=== PATIENT | female | born 1965 | race Hispanic/Latino ===

== ENCOUNTER 2017-02-06 10:44 | Inpatient (IN) | payer BC ==
[2017-02-06 11:43] LABS: Basophils % (Auto) 0.6 % (0.0-1.8); Eosinophils % (Auto) 0.5 % (0.0-4.3); Hematocrit 45.3 % (30.3-42.9); Mean Corpuscular HGB Conc 35 % (30-34); Mean Corpuscular Hemoglobin 33 pg (28-32); Mean Corpuscular Volume 93 fl (79-97); Platelet Count 281 K/mm3 (140-440); Red Blood Count 4.86 M/mm3 (3.65-5.03); Red Cell Distribution Width 12.9 % (13.2-15.2); White Blood Count 5.2 K/mm3 (4.5-11.0)
--- NOTE | 2017-02-06 11:46 | Emergency Department Report ---
HPI - General Chief Complaint: Dizziness Time Seen by Provider: 02/06/17 11:33 - HPI HPI: Room 6 The patient is a 52-year-old female presenting with a chief complaint of paresthesia and dysarthria. Patient states her symptoms began earlier yesterday with bilateral hand numbness. Patient states the numbness has been constant and last night she developed dysphagia. She states the numbness increased this morning and was associated with slurred speech. Family states this morning the patient developed weakness and was unable to raise both arms up. Patient denies headache nausea or vomiting. Location: [see above] Duration: Constant since yesterday Quality: Numbness, dysarthria Severity: Moderate Modifying factors: [see above] Context: [see above] Mode of transportation: [not driving] ED Past Medical Hx - Past Medical History Previous Medical History?: No - Surgical History Past Surgical History?: No - Family History Family history: no significant - Social History Smoking Status: Current Every Day Smoker (2 packs per day) Substance Use Type: None (denies illicit drug use) ED Review of Systems ROS: Stated complaint: POSSIBLE CVA Other details as noted in HPI Comment: All other systems reviewed and negative Constitutional: denies: chills, fever Eyes: denies: eye pain, eye discharge, vision change ENT: denies: ear pain, throat pain Respiratory: denies: cough, shortness of breath, wheezing Cardiovascular: denies: chest pain, palpitations Endocrine: no symptoms reported Gastrointestinal: denies: abdominal pain, nausea, vomiting, diarrhea Genitourinary: denies: urgency, dysuria, discharge Musculoskeletal: denies: back pain, joint swelling, arthralgia Skin: denies: rash, lesions Neurological: weakness, paresthesias, other (dysarthria, dysphagia). denies: headache Psychiatric: denies: anxiety, depression Hematological/Lymphatic: denies: easy bleeding, easy bruising Physical Exam - Physical Exam Vital Signs: Vital Signs 02/06/17 11:00 Temperature 98.2 F Pulse Rate 84 Respiratory 16 Rate Blood Pressure 148/89 O2 Sat by Pulse 99 Oximetry Physical Exam: GENERAL: The patient is well-developed well-nourished female lying on stretcher not appearing to be in acute distress. [] HEENT: Normocephalic. Atraumatic. Extraocular motions are intact. Patient has moist mucous membranes. NECK: Supple. Trachea midline CHEST/LUNGS: Clear to auscultation. There is no respiratory distress noted. HEART/CARDIOVASCULAR: Regular. There is no tachycardia. There is no gallop rub or murmur. ABDOMEN: Abdomen is soft, nontender. Patient has normal bowel sounds. There is no abdominal distention. SKIN: There is no rash. There is no edema. There is no diaphoresis. NEURO: The patient is awake, alert, and oriented. The patient is cooperative. Cranial nerves II through XII grossly intact, no drift. [employer] Chief [employer] 5+/5 bilaterally. The patient is a slight dysarthria. Slightly decreased sensation left lower extremity otherwise sensation normal throughout MUSCULOSKELETAL: There is no evidence of acute injury. ED Course Vital Signs 02/06/17 11:00 Temperature 98.2 F Pulse Rate 84 Respiratory 16 Rate Blood Pressure 148/89 O2 Sat by Pulse 99 Oximetry ED Medical Decision Making - Lab Data Result diagrams: 02/06/17 11:29 02/06/17 11:29 Laboratory Tests 02/06/17 02/06/17 02/06/17 10:52 11:29 11:29 WBC 5.2 RBC 4.86 Hgb 16.0 H Hct 45.3 H MCV 93 MCH 33 H MCHC 35 H RDW 12.9 L Plt Count 281 Lymph % (Auto) 25.7 [place] % (Auto) 7.9 H Eos % (Auto) 0.5 Baso % (Auto) 0.6 Lymph # 1.3 [place] # 0.4 Eos # 0.0 Baso # 0.0 Seg Neutrophils % 65.3 Seg Neutrophils # 3.4 PT INR APTT Sodium 140 Potassium 3.8 Chloride 100.3 Carbon Dioxide 22 Anion Gap 22 BUN 8 Creatinine 0.8 Estimated GFR > 60 BUN/Creatinine Ratio 10.00 Glucose 91 POC Glucose 90 Calcium 9.0 Troponin T < 0.010 02/06/17 12:00 WBC RBC Hgb Hct MCV MCH MCHC RDW Plt Count Lymph % (Auto) [place] % (Auto) Eos % (Auto) Baso % (Auto) Lymph # [place] # Eos # Baso # Seg Neutrophils % Seg Neutrophils # PT 14.2 INR 1.05 APTT 29.2 Sodium Potassium Chloride Carbon Dioxide Anion Gap BUN Creatinine Estimated GFR BUN/Creatinine Ratio Glucose POC Glucose Calcium Troponin T - EKG Data -: EKG Interpreted by Me EKG shows normal: sinus rhythm Rate: normal - EKG Data When compared to previous EKG there are: previous EKG unavailable Interpretation: other (frequent PVCs) - Radiology Data Radiology results: report reviewed (CT head), image reviewed (CT head) CT head (read by radiologist)-mild frontal cortical atrophy. No acute changes - Differential Diagnosis CVA, anxiety Critical care attestation.: If time is entered above; I have spent that time in minutes in the direct care of this critically ill patient, excluding procedure time. ED Disposition Clinical Impression: CVA (cerebral vascular accident) Disposition: DC-09 OP ADMIT IP TO THIS HOSP Is pt being admited?: Yes Does the pt Need Aspirin: Yes Condition: Fair Referrals: PRIMARY CARE,MD [Primary Care Provider] - 3-5 Days Time of Disposition: 12:25 (hospitalist paged)
[2017-02-06 12:02] LABS: Anion Gap 22 mmol/L; Blood Urea Nitrogen 8 mg/dL (7-17); Carbon Dioxide 22 mmol/L (22-30); Chloride 100.3 mmol/L (98-107); Glucose 91 mg/dL (65-100); Potassium 3.8 mmol/L (3.6-5.0); Sodium 140 mmol/L (137-145)
--- NOTE | 2017-02-06 12:16 | Cat Scan Report ---
CT HEAD WITHOUT CONTRAST: 02/06/17 10:44:00 CLINICAL: Dysarthria and bilateral hand paresthesias. TECHNIQUE: 2.5-mm noncontrast scans. COMPARISON:None FINDINGS: The ventricles are normal size. Mild widening of frontal lobe sulci. No abnormal density. No mass or mass effect. No hemorrhage, edema or extra-axial collection. The sinuses are clear. Normal orbits and soft tissues. The calvarium and skull base are intact. IMPRESSION: Mild frontal cortical atrophy and no acute change.
[2017-02-06 12:21] LABS: INR 1.05 (0.87-1.13)
[2017-02-06 12:22] LABS: Partial Thromboplastin Time 29.2 Sec. (24.2-36.6)
[2017-02-06] MEDS ORDERED: ASPIRIN PO ONE (12:24)
--- NOTE | 2017-02-06 12:34 | History and Physical Report ---
History of Present Illness Chief complaint: I cant talk right and I felt weak in my arms History of present illness: 52 YO Female with Nicotine Dependence presents to ED for evaluation. Pt states that she has experienced dizziness, arm weakness, and difficulty speaking for the past 14 hours with worsening symptoms over the past 6 hours. Pt states that when she awoke this am she was unable to speak, and her left arm felt weak and she could not think. Pt denies fever, chills, CP, Palpitations, NVD, Illicit drug use, OTC medication/herbal supplements, Syncope, Seizure, loss of bowel/ bladder continence, falls, BRBPR, BEST, Trauma, BEST, skin rashes, productive cough , or recent ill contacts. Pt states that she feels anxious. Past History Past Medical History: other (Nicotine Dependence) Past Surgical History: Other (breast surgery) Social history: , smoking. denies: alcohol abuse, prescription drug abuse, IV drug use Family history: other (reviewed). denies: no significant family history Medications and Allergies Allergies Allergy/AdvReac Type Severity Reaction Status Date / Time No Known Allergies Allergy Unverified 02/06/17 11:09 Review of Systems All systems: negative Constitutional: no weight loss Ears, nose, mouth and throat: no ear pain Breasts: no swelling Cardiovascular: no chest pain Respiratory: no cough Gastrointestinal: no abdominal pain Genitourinary Female: no pelvic pain Rectal: no pain Musculoskeletal: no neck stiffness Integumentary: no rash Neurological: transient paralysis, weakness, numbness, no head injury Psychiatric: anxiety Endocrine: no cold intolerance Hematologic/Lymphatic: no easy bruising Allergic/Immunologic: no urticaria Exam - Constitutional Vitals: Temp Pulse Resp BP Pulse Ox 98.2 F 84 16 148/89 99 02/06/17 11:00 02/06/17 11:00 02/06/17 11:00 02/06/17 11:00 02/06/17 11:00 General appearance: Present: mild distress, other (anxious) - EENT Eyes: Present: PERRL ENT: hearing intact, clear oral mucosa - Neck Neck: Present: supple, normal ROM - Respiratory Respiratory effort: normal Respiratory: bilateral: CTA - Cardiovascular Heart Sounds: Present: S1 & S2. Absent: rub, click - Extremities Extremities: pulses symmetrical, No edema Peripheral Pulses: within normal limits - Abdominal General gastrointestinal: Present: soft, non-tender, non-distended, normal bowel sounds Female genitourinary: Present: normal - Integumentary Integumentary: Present: clear, warm, dry - Musculoskeletal Musculoskeletal: gait normal, strength equal bilaterally - Psychiatric Psychiatric: appropriate mood/affect, intact judgment & insight - Neurologic Neurologic: CNII-XII intact, no focal deficits, moves all extremities, gait normal Results - Labs CBC & Chem 7: 02/06/17 11:29 02/06/17 11:29 Labs: Abnormal lab results 02/06/17 Range/Units 11:29 Hgb 16.0 H (10.1-14.3) gm/dl Hct 45.3 H (30.3-42.9) % MCH 33 H (28-32) pg MCHC 35 H (30-34) % RDW 12.9 L (13.2-15.2) % [place] % (Auto) 7.9 H (0.0-7.3) % Assessment and Plan - Patient Problems (1) CVA (cerebral vascular accident) Current Visit: Yes Status: Suspected Qualifiers: CVA mechanism: occlusion Precerebral and cerebral artery: middle cerebral artery Laterality of affected vessel: right Qualified Code(s): I63.511 - Cerebral infarction due to unspecified occlusion or stenosis of right middle cerebral artery Plan to address problem: CT head, MRI/MRA, Carotid Doppler, Echo, Antiplatelet therapy, PT/OT/ Speech therapy, bedside swallow evaluation. (2) Nicotine dependence Current Visit: Yes Status: Acute Qualifiers: Nicotine product type: N Substance use status: S Plan to address problem: nicotine Patch, remove qhs (3) Agitation Current Visit: Yes Status: Acute Plan to address problem: UDS, ativan prn (4) DVT prophylaxis Current Visit: Yes Status: Acute
[2017-02-06] MEDS ORDERED: TYLENOL PO PRN (12:35)
[2017-02-06] MEDS ORDERED: SODIUM CHLORIDE FLUSH SYRINGE 10 ML IV PRN (12:35)
[2017-02-06] MEDS ORDERED: MILK OF MAGNESIA PO PRN (12:35)
[2017-02-06] MEDS ORDERED: ZOFRAN IV PRN (12:35)
[2017-02-06] MEDS ORDERED: PHENERGAN PR PRN (12:35)
[2017-02-06] MEDS ORDERED: DULCOLAX PR PRN (12:35)
[2017-02-06] MEDS ORDERED: REGLAN PO PRN (12:51)
[2017-02-06] MEDS ORDERED: ATIVAN IV ONE (13:14)
[2017-02-06] MEDS ORDERED: HABITROL TD ONE (14:00)
[2017-02-06 14:08] LABS: Urine Drugs of Abuse Note Disclamer
[2017-02-06] MEDS ORDERED: SINEquan PO PRN (21:32)
[2017-02-06] MEDS ORDERED: ZOCOR PO SCH (22:00)
[2017-02-06] MEDS: HABITROL TD SCH (22:33)
[2017-02-06] MEDS: CYMBALTA PO SCH (22:33)
[2017-02-07 04:14] VITALS: BP 127/80
--- NOTE | 2017-02-07 06:32 | Admit Criteria Form ---
Admission Criteria Documentation: TELEMETRY CARE Telemetry Admission Guidelines (Place 'X' for any and all applicable criteria): Admission to telemetry [A] may be indicated for ANY ONE of the following(1)(2)(3 )(4)(5): [ ]I. Cardiac disease, including ANY ONE of the following (9)(10)(11)(12)(13 ): [ ]a) Postacute SD [ ]b) Low-risk patients with ST-segment elevation SD who have undergone successful percutaneous coronary intervention [ ]c) Unstable angina [ ]d) Suspected SD (until it is ruled out) [ ]e) Post cardiac surgery (first 48 to 72 hours unless complications occur) [ ]f) Acute arrhythmias (including significant tachycardia or bradycardia) [B] [ ]g) Firing of an implantable cardioverter defibrillator [C] [ ]h) Suspected pacemaker or implantable cardioverter defibrillator malfunction (10) [ ]i) New administration or adjustment of an antiarrhythmic drug [D ] [ ]j) Child admitted for acute congestive heart failure [ ]j) Long QT syndrome [ ]k) Advanced heart block (eg, second-degree Mobitz type II, third- degree heart block) [ ]l) Acute myocarditis or pericarditis [ ]m) Short-term (ambulatory or inpatient) monitoring after a cardiac procedure as indicated by ANY ONE of the following [E]: [ ]i) Electrophysiologic studies [ ]ii) Percutaneous coronary intervention with stent placement [ ]iii) Pacemaker placement with cardiac conduction defect [ ]iv) Implantable cardiac defibrillator placement [ ]II. Drug overdose or poisoning with substance that causes arrhythmias or QT prolongation (eg, phenothiazines, sympathomimetic agents, cyclic antidepressants, digitalis, antiarrhythmic drugs)(15) [ ]III. Short-term (ambulatory or inpatient) monitoring after therapeutic or diagnostic procedure requiring conscious sedation or anesthesia (eg, endoscopy, elective cardioversion) [X]IV. Acute cerebrovascular even[F](18) [ ]V. Massive blood transfusion (eg, at least 10 units of packed red blood cells in 24 hours) [ ]. Variceal bleeding after endoscopy, sclerotherapy, or IV vasopressin [ ]VII. Uncorrected electrolyte abnormalities associated with an increased risk of dangerous arrhythmia [G]; examples include [ ]a) Hyperkalemia with attributable ECG changes [ ]b) Potassium greater than 6.5 mmol/L (mEq/L) in a patient without history of chronic renal disease [ ]c) Prolonged QT attributed to hypokalemia, hypomagnesemia, or hypocalcemia [ ]VIII.Unexplained syncope or other neurologic event suspected of being due to arrhythmia due to a finding that increases risk; examples include(19)(20)(21): [ ]a) High-risk ECG findings (eg, bifascicular block, bradycardia, abnormal QT interval, ventricular pre- excitation) [ ]b) History of previous syncope due to arrhythmia [ ]c) Abnormal ventricular function (eg, reduced ejection fraction ) [ ]d) Exertional or supine syncope [ ]e) Concerning syncope characteristics (eg, sudden loss of consciousness without prodrome) [ ]f) Family history of sudden [ ]g) Use of arrhythmogenic medication [ ]h) Suspected cardiac ischemia [ ]i) Known channelopathy (eg, long QT syndrome, Brugada syndrome, or catecholaminergic paroxysmal ventricular tachycardia) [ ]j) Known structural heart disease (eg, hypertrophic cardiomyopathy , severe valvular disease) [ ]k) Palpitations preceding syncope The original [employer] content created by [employer] has been revised. The portions of the content which have been revised are identified through the use of italic text or in bold, and [employer] has neither reviewed nor approved the modified material. All other unmodified content is copyright [employer]. Please see references footnoted in the original [employer] edition 2016 Admission Criteria Met: Yes
[2017-02-07] MEDS ORDERED: ECOTRIN PO SCH (10:00)
[2017-02-07] MEDS: CYMBALTA PO SCH (10:13)
[2017-02-07] MEDS: HABITROL TD SCH (10:13)
--- NOTE | 2017-02-07 13:27 | Progress Note ---
Hospitalist Physical - Constitutional Vitals: Temp Pulse Resp BP Pulse Ox 97.9 F 61 18 127/80 94 02/07/17 04:12 02/07/17 04:12 02/07/17 04:12 02/07/17 04:12 02/07/17 04:12 General appearance: Present: mild distress, other (anxious) Results - Labs CBC & Chem 7: 02/06/17 11:29 02/06/17 11:29 Labs: Laboratory Last Values WBC 5.2 K/mm3 (4.5-11.0) 02/06/17 11:29 RBC 4.86 M/mm3 (3.65-5.03) 02/06/17 11:29 Hgb 16.0 gm/dl (10.1-14.3) H 02/06/17 11:29 Hct 45.3 % (30.3-42.9) H 02/06/17 11:29 MCV 93 fl (79-97) 02/06/17 11:29 MCH 33 pg (28-32) H 02/06/17 11:29 MCHC 35 % (30-34) H 02/06/17 11:29 RDW 12.9 % (13.2-15.2) L 02/06/17 11:29 Plt Count 281 K/mm3 (140-440) 02/06/17 11:29 Lymph % (Auto) 25.7 % (13.4-35.0) 02/06/17 11:29 [place] % (Auto) 7.9 % (0.0-7.3) H 02/06/17 11:29 Eos % (Auto) 0.5 % (0.0-4.3) 02/06/17 11:29 Baso % (Auto) 0.6 % (0.0-1.8) 02/06/17 11:29 Lymph # 1.3 K/mm3 (1.2-5.4) 02/06/17 11:29 [place] # 0.4 K/mm3 (0.0-0.8) 02/06/17 11:29 Eos # 0.0 K/mm3 (0.0-0.4) 02/06/17 11:29 Baso # 0.0 K/mm3 (0.0-0.1) 02/06/17 11:29 Seg Neutrophils % 65.3 % (40.0-70.0) 02/06/17 11:29 Seg Neutrophils # 3.4 K/mm3 (1.8-7.7) 02/06/17 11:29 PT 14.2 Sec. (12.2-14.9) 02/06/17 12:00 INR 1.05 (0.87-1.13) 02/06/17 12:00 APTT 29.2 Sec. (24.2-36.6) 02/06/17 12:00 Sodium 140 mmol/L (137-145) 02/06/17 11:29 Potassium 3.8 mmol/L (3.6-5.0) 02/06/17 11:29 Chloride 100.3 mmol/L (98-107) 02/06/17 11:29 Carbon Dioxide 22 mmol/L (22-30) 02/06/17 11:29 Anion Gap 22 mmol/L 02/06/17 11:29 BUN 8 mg/dL (7-17) 02/06/17 11:29 Creatinine 0.8 mg/dL (0.7-1.2) 02/06/17 11:29 Estimated GFR > 60 ml/min 02/06/17 11:29 BUN/Creatinine Ratio 10.00 % 02/06/17 11:29 Glucose 91 mg/dL (65-100) 02/06/17 11:29 POC Glucose 90 (70-105) 02/06/17 10:52 Calcium 9.0 mg/dL (8.4-10.2) 02/06/17 11:29 Troponin T < 0.010 ng/mL (0.00-0.029) 02/06/17 11:29 Triglycerides 245 mg/dL (2-149) H 02/07/17 07:11 Cholesterol 231 mg/dL (50-199) H 02/07/17 07:11 LDL Cholesterol Direct 116 mg/dL (50-130) 02/07/17 07:11 HDL Cholesterol 66 mg/dL (40-59) H 02/07/17 07:11 Cholesterol/HDL Ratio 3.50 % 02/07/17 07:11 Urine Opiates Screen Presumptive negative 02/06/17 14:04 Urine Methadone Screen Presumptive negative 02/06/17 14:04 Ur Barbiturates Screen Presumptive negative 02/06/17 14:04 Ur Phencyclidine Scrn Presumptive negative 02/06/17 14:04 Ur Amphetamines Screen Presumptive negative 02/06/17 14:04 U Benzodiazepines Scrn Presumptive negative 02/06/17 14:04 Urine Cocaine Screen Presumptive negative 02/06/17 14:04 U Marijuana (THC) Screen Presumptive negative 02/06/17 14:04 Drugs of Abuse Note Disclamer 02/06/17 14:04
--- NOTE | 2017-02-07 17:05 | Discharge Summary ---
Providers - Providers Date of Admission: 02/06/17 12:35 Date of discharge: 02/07/17 Attending physician: DILEEP ALMONTE Primary care physician: MICROSTRATEGY ARCHITECT Hospitalization Condition: Fair Disposition: DC-30 STILL A PATIENT Exam - Constitutional Vitals: Temp Pulse Resp BP Pulse Ox 97.9 F 61 18 127/80 94 02/07/17 04:12 02/07/17 04:12 02/07/17 04:12 02/07/17 04:12 02/07/17 04:12 Plan Activity: advance as tolerated Diet: low cholesterol Special Instructions: smoking cessation Additional Instructions: If you have any slurring of speech, sudden weakness or numbness, contact M.D. or go to emergency room. Smoking cessation advised. out patient MRA and MRI brain w/o to be reviewed by Neurologist Follow up with: PRIMARY MD TREVOR [Primary Care Provider] - 3-5 Days SILVANA BATRES MD [Staff Physician] - 7 Days Prescriptions: Aspirin EC [Aspirin Enteric Coated TAB] 325 mg PO QDAY #30 tablet Nicotine [Habitrol] 21 mg TD QDAY #30 patch Simvastatin [Zocor TAB] 20 mg PO QHS #30 tablet
--- NOTE | 2017-02-11 08:59 | Vascular Lab Report ---
CAROTID DUPLEX STUDY: RIGHT PSVEDV CCA PROX:8820 CCA DIST:7121 ICA PROX:8921 ICA MID:6722 ICA DIST:8633 ECA: 9221 VERT: 34 12 LEFT PSVEDV CCA PROX:9421 CCA DIST:9229 ICA PROX:8222 ICA MID:6826 ICA DIST:9134 ECA: [id number] VERT: 68 14 REASON FOR EXAM: Stroke. COMMENTS ON THE RIGHT: Doppler frequency analysis is consistent with 16 to 49 percent diameter reduction of the internal carotid artery. Minimal amount of plaque is seen. The common carotid artery is patent. The external carotid artery is patent. The vertebral artery has antegrade flow. COMMENTS ON THE LEFT: Doppler frequency analysis is consistent with 16 to 49 percent diameter reduction of the internal carotid artery. Minimal amount of plaque is seen. The common carotid artery is patent. The external carotid artery is patent. The vertebral artery has antegrade flow. IMPRESSION: Less than 50% diameter reduction in the internal carotid arteries bilaterally. Consider repeat carotid artery duplex in 12 months.
== END 2017-02-07 17:51 | disposition home or self-care (01) | DRG 66 ==
LOC: ED 10:44 → 4A 12:35
PROVIDERS: ADMIT Internal Medicine; ATTEND Internal Medicine
DX: I63.9 Cerebral infarction, unspecified (principal); F17.200 Nicotine dependence, unspecified, uncomplicated; R45.1 Restlessness and agitation; Z79.899 Other long term (current) drug therapy
CPT/HCPCS: 36415; 70450; 80048; 80061; 80307; 82962; 84484; 85025; 85610; 85730; 93005; 93010; 93306; 93880; 96374; J2060

== ENCOUNTER 2017-02-11 14:08 | Outpatient (CLI) | payer BC ==
--- NOTE | 2017-02-12 09:25 | Magnetic Resonance Report ---
MRI scan of brain: History: TIA, cerebrovascular disease. Technique: Multiplanar, multisequence images were obtained without contrast injection. Findings: No evidence of restricted diffusion. Ventricles are normal in size and midline in location. No evidence of acute ischemia, hemorrhage or mass. No extra-axial fluid collection. Normal brainstem and cerebellum. Normal sinuses and mastoid air cells. Impression: No acute intracranial abnormality.
== END 2017-02-11 14:09 | disposition home or self-care (01) ==
LOC: MRI 14:08
PROVIDERS: ATTEND Specialist
DX: Z00.00 Encounter for general adult medical examination without abnormal findings (principal); E78.00 Pure hypercholesterolemia, unspecified; F17.200 Nicotine dependence, unspecified, uncomplicated; Z86.73 Personal history of transient ischemic attack (TIA), and cerebral infarction without residual deficits
CPT/HCPCS: 70551

== ENCOUNTER 2017-03-30 00:51 | Emergency (ER) | payer BC ==
[2017-03-30 02:03] LABS: Anion Gap 19 mmol/L; BUN/Creatinine Ratio 21.42; Blood Urea Nitrogen 15 mg/dL (7-17); Calcium 9.5 mg/dL (8.4-10.2); Carbon Dioxide 26 mmol/L (22-30); Glucose 91 mg/dL (65-100); Potassium 4.1 mmol/L (3.6-5.0); Sodium 138 mmol/L (137-145)
[2017-03-30 02:05] LABS: Basophils % (Auto) 0.6 % (0.0-1.8); Eosinophils % (Auto) 2.4 % (0.0-4.3); Hematocrit 42.3 % (30.3-42.9); Hemoglobin 15.1 gm/dl (10.1-14.3); Mean Corpuscular HGB Conc 36 % (30-34); Mean Corpuscular Hemoglobin 33 pg (28-32); Mean Corpuscular Volume 92 fl (79-97); Platelet Count 259 K/mm3 (140-440); Red Blood Count 4.58 M/mm3 (3.65-5.03); Red Cell Distribution Width 12.2 % (13.2-15.2); White Blood Count 7.9 K/mm3 (4.5-11.0)
--- NOTE | 2017-03-30 02:12 | XRay Report ---
FINAL REPORT PROCEDURE: XR CHEST 1V AP TECHNIQUE: Chest radiograph anteroposterior view. CPT 15220 HISTORY: Neurologic deficit. COMPARISON: No prior studies are available for comparison. FINDINGS: Heart: Normal. Mediastinum/Vessels: Aortic tortuosity. Lungs/Pleural space: Normal. Bony thorax: No acute osseous abnormality. Life support devices: None. IMPRESSION: No radiographic evidence of acute cardiopulmonary disease.
[2017-03-30 02:17] LABS: INR 0.96 (0.87-1.13); Partial Thromboplastin Time 30.3 Sec. (24.2-36.6)
[2017-03-30 02:55] VITALS: BP 139/68
--- NOTE | 2017-03-30 03:01 | Cat Scan Report ---
FINAL REPORT PROCEDURE: CT HEAD/BRAIN WO CON TECHNIQUE: Computerized tomography of the head was performed without contrast material. HISTORY: THROBBING H/A , NUMBNESS IN CHEEKS COMPARISON: 02/06/2017 FINDINGS: Skull and scalp: Normal. Paranasal sinuses: Normal. Ventricles and subarachnoid spaces: Normal. Cerebrum: No evidence of hemorrhage, acute infarction or mass . Cerebellum and brainstem: No evidence of hemorrhage, acute infarction or mass. Vasculature: Normal. Comments: None. IMPRESSION: There is no evidence of an acute intracranial process
== END 2017-03-30 06:24 | disposition left against medical advice (07) ==
LOC: ED 00:51
DX: Z53.21 Procedure and treatment not carried out due to patient leaving prior to being seen by health care provider (principal)
CPT/HCPCS: 36415; 70450; 71010; 80048; 84484; 85025; 85610; 85670; 85730; 93005; 93010

== ENCOUNTER 2017-08-19 13:39 | Outpatient (CLI) | payer BC | END 2017-08-19 13:40 | disposition home or self-care (01) | LOC: LAB 13:39 | PROVIDERS: ATTEND Specialist | DX: R53.83 Other fatigue (principal); E78.00 Pure hypercholesterolemia, unspecified; F17.200 Nicotine dependence, unspecified, uncomplicated | CPT/HCPCS: 36415; 82306 ==

== ENCOUNTER 2017-09-13 12:02 | Outpatient (CLI) | payer BC ==
--- NOTE | 2017-09-13 12:33 | XRay Report ---
LEFT HIP, 2 views: History: Left hip pain. The bony architecture is intact without evidence of fracture or dislocation. No significant soft tissue abnormality is seen. IMPRESSION: Normal left hip.
--- NOTE | 2017-09-13 12:35 | XRay Report ---
AP AND LATERAL LUMBOSACRAL SPINE: History: Low back pain There is normal height and alignment of the lumbar vertebral bodies. No fracture, subluxation or bone lesion. Moderate to severe degenerative disc narrowing is noted at L5-S1. The remaining levels are within normal limits. The visualized portions of the posterior elements are normal. IMPRESSION: Advanced degenerative disc disease at L5-S1.
== END 2017-09-13 12:03 | disposition home or self-care (01) ==
LOC: XRAY 12:02
PROVIDERS: ATTEND Orthopaedic Surgery
DX: M51.37 Other intervertebral disc degeneration, lumbosacral region (principal); M25.552 Pain in left hip
CPT/HCPCS: 72100

== ENCOUNTER → 2017-11-26 20:12 | Emergency (ER) | payer BC | END | disposition left against medical advice (07) | LOC: ED 20:12 | DX: T14.8XXA Other injury of unspecified body region, initial encounter (principal); Z53.21 Procedure and treatment not carried out due to patient leaving prior to being seen by health care provider; W46.0XXA Contact with hypodermic needle, initial encounter; Y93.89 Activity, other specified; Y99.8 Other external cause status; Y92.89 Other specified places as the place of occurrence of the external cause ==

== ENCOUNTER 2018-01-27 13:11 | Outpatient (CLI) | payer BC ==
--- NOTE | 2018-01-27 14:19 | Mammography Report ---
Bilateral mammogram: No previous studies are available. CAD study utilized. Findings: Bilateral stable breast implants. Fatty breasts bilaterally. Circumscribed nodule measuring 7 mm in diameter at either mid zone CC view. Ill-defined density measuring 1 cm in diameter upper posterior right breast MLO view. No microcalcifications. Impression: Comparison with previous studies is recommended. If previous studies are not available, Recommend spot compression and if necessary sonographic examination of densities right breast. BI-RADS CATEGORY: 0 = Needs additional imaging evaluation ACR BI-RADS MAMMOGRAPHIC CODES: 0 = Needs additional imaging evaluation; 1 = Negative; 2 = Benign; 3 = Probably benign; 4 = Suspicious; 5 = Malignant; 6 = Known biopsy-proven malignancy COMMENT: 1. Dense breast tissue, i.e., adenosis, fibrocystic changes, etc., may obscure an underlying neoplasm. 2. Approximately 10% of cancers are not detected with mammography. 3. A negative mammography report should not delay biopsy if a clinically suspicious mass is present. COMMENT: Patient follow-up letters are generated in [employer].
== END 2018-01-27 13:12 | disposition home or self-care (01) ==
LOC: MAMMO 13:11
PROVIDERS: ATTEND Specialist
DX: Z12.31 Encounter for screening mammogram for malignant neoplasm of breast (principal); E78.00 Pure hypercholesterolemia, unspecified
CPT/HCPCS: 77067

== ENCOUNTER 2018-08-31 07:12 | Day surgery (SDC) | payer BC ==
[~2018-08-31 07:12] MED LIST: WATER FOR IRRIG STERILE IR ONE; WATER FOR IRRIG STERILE ONE
[2018-08-31] MEDS ORDERED: NACL 0.9% 1000 ML 1,000 ML IV SCH (08:00)
[2018-08-31] MEDS ORDERED: VERSED ONE (10:17)
[2018-08-31] MEDS ORDERED: WATER FOR IRRIG STERILE IR ONE (10:22)
--- NOTE | 2018-08-31 10:23 | Anesthesia Day of Surgery ---
Anesthesia Day of Surgery - Day of Surgery Patient Examined: Yes Patient H&P Reviewed: Yes Patient is NPO: Yes Beta Blockers: No Cardiac Clearance: No Pulmonary Clearance: No
--- NOTE | 2018-08-31 10:25 | Anesthesia Consultation ---
Anesthesia Consult and Med Hx Date of service: 08/31/18 - Airway Anesthetic Teeth Evaluation: Good ROM Head & Neck: Adequate Mental/Hyoid Distance: Adequate Mallampati Class: Class III Intubation Access Assessment: Good - Pulmonary Exam CTA: Yes - Cardiac Exam Cardiac Exam: RRR - Pre-Operative Health Status ASA Pre-Surgery Classification: ASA2 Proposed Anesthetic Plan: MAC - Pulmonary Hx Smoking: Yes - Cardiovascular System Hx Hypertension: Yes - Gastrointestinal Hx Ulcer: No Hx Gastroesophageal Reflux Disease: No - Endocrine Hx Renal Disease: No Hx End Stage Renal Disease: No Hx Cirrhosis: No Hx Liver Disease: No Hx Insulin Dependent Diabetes: No Hx Non-Insulin Dependent Diabetes: No Hx Thyroid Disease: No Hx Hypothyroidism: No Hx Hyperthyroidism: No - Hematic Hx Anemia: No Hx Sickle Cell Disease: No - Other Systems Hx Alcohol Use: No Hx Substance Use: No Hx Cancer: No Hx Obesity: Yes
--- NOTE | 2018-08-31 11:04 | Short Stay Summary ---
Short Stay Documentation Date of service: 08/31/18 Narrative H&P: Pt is a 53 yo wf who presents for colonoscopy. Pt with personal history of colon polyps over 5 years ago; she has had constipation with scant hematochezia; this improved after stopping cymbalta. no new gi complaints otherwise at this time. - History Past Medical History: other (see chart note) Past Surgical History: Other (see chart note) Social history: no significant social history - Allergies and Medications Current Medications: Allergies No Known Allergies Allergy (Verified 08/29/18 11:26) Home Medications Medication Instructions Recorded Confirmed Last Taken Type Lisinopril [Zestril TAB] 10 mg PO QDAY 03/30/17 08/31/18 08/30/18 History Cymbalta 60 mg PO DAILY 08/29/18 08/29/18 Unknown History Doxepin 100 mg PO DAILY 08/29/18 08/31/18 08/30/18 History Simvastatin 1 tab PO DAILY 08/29/18 08/31/18 08/30/18 History Active Medications Sodium Chloride (Nacl 0.9% 1000 Ml) 1,000 mls @ 50 mls/hr IV DIRECT JOSH Last Admin: 08/31/18 09:03 Dose: 50 mls/hr Documented by: - Physical exam General appearance: no acute distress Lungs: Clear to auscultation Heart: Regular rate, Normal S1, Normal S2 Gastrointestinal: normal - Brief post op/procedure progress note Date of procedure: 08/31/18 Pre-op diagnosis: personal history of colon polyps Post-op diagnosis: other (colon polyp x 2, diverticulosis, internal hemorrhoids) Procedure: Colonoscopy with snare polypectomy Anesthesia: MAC Findings: 1. Colon polyp x 2 removed with cold snare 2. Diverticulosis 3. Internal hemorrhoids Surgeon: DANIEL BECKMAN Estimated blood loss: minimal Pathology: list (transverse colon polyps) Specimen disposition: to lab Condition: stable Short Stay Discharge Plan Follow up with: DRU HAMMOND MD [Primary Care Provider] - 7 Days
--- NOTE | 2018-08-31 11:11 | Operative Report ---
Operative Report Operative Report: Colonoscopy Procedure Note with Snare polypectomy Date of procedure: 08/31/2018 Endoscopist: Cr Zapien Pre-op diagnosis/indication: personal history of colon polyps, hematochezia, constipation Post-op diagnosis: colon polyp x 2 removed; diverticulosis, internal hemorrhoids MEDICATIONS: MAC COMPLICATIONS: No immediate complications ESTIMATED BLOOD LOSS: none DESCRIPTION OF PROCEDURE: After consent was obtained, the patient was placed in the left lateral decubitis position. The fujinon colonoscope was inserted into the rectum under direct vision, and advanced to the cecum difficulty. The quality of prep was good. The patient tolerated the procedure well. The patient's vital signs were monitored continuously throughout the procedure. FINDINGS: There were two sessile polyps, 4-5 mm, in the transverse colon. The polyps were removed with cold snare polypectomy and retrieved. There were a few medium sized diverticula in the left side of the colon. Internal hemorrhoids were visualized on retroflexion view. IMPRESSION: 1. Colon polyps x 2 removed with cold snare as above 2. Diverticulosis 3. Internal hemorrhoids RECOMMENDATIONS: -high fiber diet daily -follow-up pathology -repeat colonoscopy for surveillance in 3-5 years based on pathology results
[2018-08-31] MEDS ORDERED: DIPRIVAN 10 MG/ML IV ONE ×2 (11:15)
[2018-08-31 11:54] VITALS: BP 117/62
== END 2018-08-31 07:13 | disposition home or self-care (01) ==
LOC: GIO 07:12
PROVIDERS: ATTEND Internal Medicine Gastroenterology
DX: K63.5 Polyp of colon (principal); K57.30 Diverticulosis of large intestine without perforation or abscess without bleeding; K64.8 Other hemorrhoids; F17.210 Nicotine dependence, cigarettes, uncomplicated; I63.9 Cerebral infarction, unspecified; E78.00 Pure hypercholesterolemia, unspecified; F32.9 Major depressive disorder, single episode, unspecified; I10 Essential (primary) hypertension; E66.9 Obesity, unspecified; Z68.26 Body mass index [BMI] 26.0-26.9, adult; Z86.010 Personal history of colon polyps; Z98.51 Tubal ligation status; Z79.899 Other long term (current) drug therapy; Z98.891 History of uterine scar from previous surgery; Z98.890 Other specified postprocedural states
CPT/HCPCS: 45385; 81025; 88305; J2250; J2704; J7030

== ENCOUNTER 2018-10-17 17:37 | Emergency (ER) | payer BC ==
--- NOTE | 2018-10-17 17:47 | Emergency Department Report ---
Chief Complaint: Fall Stated Complaint: FALL/PAIN ON (L) SIDE Time Seen by Provider: 10/17/18 17:46 - HPI History of Present Illness: SP FALL TUESDAY RX CHOLESTEROL MEDS LISINOPRIL CO L LOWER RIB PAIN SIDE- ANTERIOR MSE COMPLETED MSE screening note: Focused history and physical exam performed. Due to findings the following was ordered: ED Disposition for MSE Condition: Stable
--- NOTE | 2018-10-17 18:42 | Emergency Department Report ---
ED General Adult HPI - General Chief complaint: Fall Stated complaint: FALL/PAIN ON (L) SIDE Time Seen by Provider: 10/17/18 17:46 Source: patient Mode of arrival: Ambulatory Limitations: No Limitations - History of Present Illness Initial comments: To 3-year-old male his emergency department complaining of left rib pain after a fall sustained 2 days ago. Pain is been increasingly worsening since the fall and is worse with deep breaths, palpation and range of motion. She reports no hemoptysis, no hematemesis or hematochezia. No fever, chills, sweats, palpitations, nausea, vomiting. Radiation: non-radiation Quality: aching, dull Consistency: constant Improves with: none Worsens with: none Associated Symptoms: denies: confusion, chest pain, diaphoresis, fever/chills, headaches, loss of appetite, malaise, syncope, weakness - Related Data Home Medications Medication Instructions Recorded Confirmed Last Taken Lisinopril [Zestril TAB] 10 mg PO QDAY 03/30/17 08/31/18 08/30/18 Cymbalta 60 mg PO DAILY 08/29/18 08/29/18 Unknown Doxepin 100 mg PO DAILY 08/29/18 08/31/18 08/30/18 Simvastatin 1 tab PO DAILY 08/29/18 08/31/18 08/30/18 Allergies Allergy/AdvReac Type Severity Reaction Status Date / Time No Known Allergies Allergy Verified 10/17/18 17:41 ED Review of Systems ROS: Stated complaint: FALL/PAIN ON (L) SIDE Other details as noted in HPI Constitutional: denies: chills, fever Eyes: denies: eye pain, eye discharge, vision change ENT: denies: ear pain, throat pain Respiratory: denies: cough, shortness of breath, wheezing Cardiovascular: denies: chest pain, palpitations Endocrine: no symptoms reported Gastrointestinal: denies: abdominal pain, nausea, diarrhea Genitourinary: denies: urgency, dysuria, discharge Musculoskeletal: denies: back pain, joint swelling, arthralgia Skin: denies: rash, lesions Neurological: denies: headache, weakness, paresthesias Psychiatric: denies: anxiety, depression Hematological/Lymphatic: denies: easy bleeding, easy bruising ED Past Medical Hx - Past Medical History Hx Hypertension: Yes Hx Liver Disease: No Hx Renal Disease: No Hx Sickle Cell Disease: No Additional medical history: Prior TIA type Symptoms Admitted 02/07, Slurred Speech. Recent HTN since 02/07/17 - Surgical History Additional Surgical History: Tubal - Social History Smoking Status: Current Every Day Smoker Substance Use Type: None - Medications Home Medications: Home Medications Medication Instructions Recorded Confirmed Last Taken Type Lisinopril [Zestril TAB] 10 mg PO QDAY 03/30/17 08/31/18 08/30/18 History Cymbalta 60 mg PO DAILY 08/29/18 08/29/18 Unknown History Doxepin 100 mg PO DAILY 08/29/18 08/31/18 08/30/18 History Simvastatin 1 tab PO DAILY 08/29/18 08/31/18 08/30/18 History ED Physical Exam - General Limitations: No Limitations General appearance: alert, in no apparent distress - Head Head exam: Present: atraumatic, normocephalic - Eye Eye exam: Present: normal appearance, PERRL Pupils: Present: normal accommodation - ENT ENT exam: Present: normal exam, normal orophraynx, mucous membranes moist, TM's normal bilaterally - Neck Neck exam: Present: normal inspection, full ROM - Respiratory Respiratory exam: Present: normal lung sounds bilaterally. Absent: respiratory distress, rales, rhonchi, stridor, chest wall tenderness, accessory muscle use, decreased breath sounds - Cardiovascular Cardiovascular Exam: Present: regular rate, normal rhythm. Absent: systolic murmur, diastolic murmur, rubs, gallop - GI/Abdominal GI/Abdominal exam: Present: soft, normal bowel sounds - Extremities Exam Extremities exam: Present: normal inspection, full ROM, normal capillary refill - Back Exam Back exam: Present: normal inspection, full ROM. Absent: CVA tenderness (R), CVA tenderness (L), paraspinal tenderness, vertebral tenderness - Neurological Exam Neurological exam: Present: alert, oriented X3, CN II-XII intact, normal gait - Psychiatric Psychiatric exam: Present: normal affect, normal mood. Absent: flat affect, manic - Skin Skin exam: Present: warm, dry, intact, normal color. Absent: rash, cyanosis, diaphoretic, erythema ED Course Vital Signs 10/17/18 17:45 Temperature 98.4 F Pulse Rate 72 Respiratory 16 Rate Blood Pressure 114/71 O2 Sat by Pulse 97 Oximetry ED Medical Decision Making - Radiology Data Radiology results: report reviewed (nop fx) Critical care attestation.: If time is entered above; I have spent that time in minutes in the direct care of this critically ill patient, excluding procedure time. ED Disposition Clinical Impression: Contusion of rib on left side Disposition: DC-01 TO HOME OR SELFCARE Is pt being admited?: No Does the pt Need Aspirin: No Condition: Stable Instructions: Contusion in Adults (ED) Referrals: SURESH LUCERO MD [Primary Care Provider] - 3-5 Days
--- NOTE | 2018-10-17 19:56 | XRay Report ---
PROCEDURE: XR RIBS UNI W PA CHEST 3+V LT TECHNIQUE: 3 views left RIBS with frontal view of the chest HISTORY: PAIN SP FALL COMPARISONS: FINDINGS: No displaced rib fractures are identified. Chest demonstrates no evidence for an infiltrate. No pleur al effusion or pneumothorax identified. Cardiac and mediastinal contours are unremarkable. IMPRESSION: Negative rib series. This document is electronically signed by Eliu Husain MD., October 17 2018 07:54:48 PM ET
[2018-10-17 21:26] VITALS: BP 114/71
== END 2018-10-17 20:34 | disposition home or self-care (01) ==
LOC: ED 17:37
DX: S20.212A Contusion of left front wall of thorax, initial encounter (principal); I10 Essential (primary) hypertension; F17.200 Nicotine dependence, unspecified, uncomplicated; W18.30XA Fall on same level, unspecified, initial encounter; Y93.89 Activity, other specified; Y92.89 Other specified places as the place of occurrence of the external cause; Y99.8 Other external cause status
CPT/HCPCS: 99283

== ENCOUNTER 2019-03-16 13:34 | Outpatient (CLI) | payer BC ==
--- NOTE | 2019-03-16 16:50 | Magnetic Resonance Report ---
MRI LEFT KNEE WITHOUT CONTRAST INDICATION / CLINICAL INFORMATION: M17.12 LEFT KNEE UNILATERAL PRIMARY OSTEOARTHRITIS. COMPARISON: None available. TECHNIQUE: Multiplanar, multisequence MR images were obtained. FINDINGS: ACL: No significant abnormality. PCL: No significant abnormality. DISTAL QUADRICEPS TENDON: No significant abnormality. PATELLAR TENDON: No significant abnormality. MEDIAL MENISCUS: Radial tear of the posterior junctional zone extending into the posterior horn. Smal l inferior flap in the medial gutter as seen on coronal PD image 11. LATERAL MENISCUS: No significant abnormality. POSTEROLATERAL CORNER: No significant abnormality. MCL: No significant abnormality. LCL: No significant abnormality. DISTAL IT BAND: No significant abnormality. PATELLOFEMORAL ALIGNMENT: No significant abnormality. ARTICULAR CARTILAGE: Mild chondrosis of the lateral facet of the patella and in the medial compartmen t. JOINT SPACE: Moderate joint effusion with mild synovitis. Tiny popliteal cyst. No intra-articular bod ies. BONES: Mild subchondral edema in the medial tibial plateau subjacent to the meniscal tear. No fractur e. No osseous lesion. SUBCUTANEOUS SOFT TISSUES: Mild anteromedial soft tissue swelling. ADDITIONAL FINDINGS: None. IMPRESSION: 1. Radial tear of the posterior junctional zone of the medial meniscus with small inferior meniscal f lap. 2. Mild chondrosis of the patella and medial compartment with mild subchondral edema in the medial ti bial plateau. 3. Moderate joint effusion. Signer Name: Clovis Ohara MD Signed: 03/16/2019 4:45 PM Workstation Name: [id number]
== END 2019-03-16 13:35 | disposition home or self-care (01) ==
LOC: MRI 13:34
PROVIDERS: ATTEND Orthopaedic Surgery
DX: M25.462 Effusion, left knee (principal); M17.12 Unilateral primary osteoarthritis, left knee; M65.862 Other synovitis and tenosynovitis, left lower leg; E78.00 Pure hypercholesterolemia, unspecified; I10 Essential (primary) hypertension; E66.9 Obesity, unspecified
CPT/HCPCS: 73721

== ENCOUNTER 2019-03-20 13:59 | Emergency (ER) | payer BC ==
[2019-03-20 14:21] VITALS: BP 159/70
[2019-03-20] MEDS ORDERED: PEPCID PO ONE (14:24)
[2019-03-20] MEDS ORDERED: DELTASONE PO ONE (14:24)
--- NOTE | 2019-03-20 14:36 | Emergency Department Report ---
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 It also seems to have popped up on her chest as well. It is slightly itchy but she denies any discomfort. There is no bleeding, weeping, drainage. The patient just arrived from home for work and this rash developed in the last 1-2 hours. She denies any previous history of this. She denies any history of any allergies to medication, food, or known environmental allergens. She denies any new soaps, detergents, food, clothing or any other possible inciting factor. She has a past medical history of previous TIA, hypertension. ED Past Medical Hx - Past Medical History Hx Hypertension: Yes Hx Liver Disease: No Hx Renal Disease: No Hx Sickle Cell Disease: No Additional medical history: Prior TIA type Symptoms Admitted 02/07, Slurred Speech. Recent HTN since 02/07/17 - Surgical History Additional Surgical History: Tubal - Social History Smoking Status: Current Every Day Smoker Substance Use Type: None - Medications Home Medications: Home Medications Medication Instructions Recorded Confirmed Last Taken Type Lisinopril [Zestril TAB] 10 mg PO QDAY 03/30/17 08/31/18 08/30/18 History Cymbalta 60 mg PO DAILY 08/29/18 08/29/18 Unknown History Doxepin 100 mg PO DAILY 08/29/18 08/31/18 08/30/18 History Simvastatin 1 tab PO DAILY 08/29/18 08/31/18 08/30/18 History Cyclobenzaprine [Flexeril] 10 mg PO QHS PRN #20 tablet 02/28/19 Unknown Rx Ibuprofen [Motrin] 800 mg PO Q8HR #30 tablet 02/28/19 Unknown Rx Famotidine [Pepcid] 20 mg PO BID #8 tablet 03/20/19 Unknown Rx predniSONE [Deltasone] 20 mg PO BID #8 tab 03/20/19 Unknown Rx ED Review of Systems ROS: Stated complaint: RASH BREAKOUT ON ARMS Other details as noted in HPI Comment: All other systems reviewed and negative Constitutional: denies: chills, fever Musculoskeletal: denies: joint swelling, myalgia Skin: rash, change in color, pruritus Neurological: denies: numbness, paresthesias Physical Exam - Physical Exam Vital Signs: Vital Signs 03/20/19 14:21 Temperature 97.9 F Pulse Rate 87 Respiratory 18 Rate Blood Pressure 159/70 [Right] O2 Sat by Pulse 96 Oximetry Physical Exam: GENERAL: The patient is well-developed well-nourished. HENT: Normocephalic. Atraumatic. Patient has moist mucous membranes. EYES: Extraocular motions are intact. NECK: Supple. Trachea is midline. CHEST/LUNGS: Clear to auscultation. There is no respiratory distress noted. HEART/CARDIOVASCULAR: Regular. There is no tachycardia. There is no murmur. ABDOMEN: There is no abdominal distention. SKIN: Patient has a erythematous blanchable rash to the bilateral upper extremities, mostly to the upper arms. The rash the arms has blotchy areas but otherwise is confluent to the lateral portions. There are a few small individual lesions to the chest. No bleeding, weeping or drainage. NEURO: The patient is awake, alert, and oriented. The patient is cooperative. Normal speech. MUSCULOSKELETAL: There is no tenderness or deformity. There is no limitation range of motion. There is no evidence of acute injury. ED Course Vital Signs 03/20/19 14:21 Temperature 97.9 F Pulse Rate 87 Respiratory 18 Rate Blood Pressure 159/70 [Right] O2 Sat by Pulse 96 Oximetry ED Medical Decision Making - Medical Decision Making Patient presents with an acute itching rash to the bilateral upper arms and a few lesions to the chest that showed up within the past hour prior to presentation. They do not appear consistent with urticaria but they are itchy and may still be consistent with an allergic reaction. However the patient does not have any known new soaps, detergents, clothing, food or anything that would be a obvious allergen. She has not been spending any time among any plants where she could've gotten a plant dermatitis. She had taken some Benadryl prior to arrival to the emergency department. She was given some steroids and Pepcid. She was reevaluated an hour or so later and the rash has started to improve/decreased. She'll be treated with steroids, Pepcid and Benadryl and was given a referral for dermatology. She will return to the emergency department as a patient with any worsening of her symptoms or any acute distress. - Differential Diagnosis allergic reaction, contact dermatitis, plant dermatitis, cellulitis Critical Care Time: No Critical care attestation.: If time is entered above; I have spent that time in minutes in the direct care of this critically ill patient, excluding procedure time. ED Disposition Clinical Impression: Dermatitis, Allergic reaction Disposition: TO HOME OR SELFCARE Is pt being admited?: No Condition: Stable Instructions: Acute Rash (ED) Additional Instructions: Please follow-up with your primary care physician in the next few days. I'm giving you a referral for a local bridge painter, Dr. wilson, to follow up regarding your rash or allergic reaction. Return to the emergency Department with any worsening of your symptoms or any acute distress. Prescriptions: predniSONE [Deltasone] 20 mg PO BID #8 tab Famotidine [Pepcid] 20 mg PO BID #8 tablet Referrals: PRIMARY MD TREVOR [Primary Care Provider] - 2-3 Days JORGE WILSON MD [Staff Physician] - 2-3 Days Time of Disposition: 17:11
== END 2019-03-20 17:16 | disposition home or self-care (01) ==
LOC: ED 13:59
DX: T78.40XA Allergy, unspecified, initial encounter (principal); L30.9 Dermatitis, unspecified; I10 Essential (primary) hypertension; F17.200 Nicotine dependence, unspecified, uncomplicated; Z98.51 Tubal ligation status; Z98.890 Other specified postprocedural states; Z79.899 Other long term (current) drug therapy; X58.XXXA Exposure to other specified factors, initial encounter
CPT/HCPCS: 99282; J7512

== ENCOUNTER 2019-04-05 06:07 | Day surgery (SDC) | payer BC ==
[~2019-04-05 06:07] MED LIST changes: +CELECOXIB 200 MG CAP PO NR; +GABAPENTIN 300 MG CAP PO NR; +LACTATED RINGERS 1,000 ML IV SCH; +MIDAZOLAM 2 MG/2 ML INJ IV NR; -WATER FOR IRRIG STERILE IR ONE; -WATER FOR IRRIG STERILE ONE; +ceFAZolin/STERILE WATER 2 GM/20 ML SYRINGE IV NR
[2019-04-05] MEDS ORDERED: HYDROmorphone 1 MG/1 ML INJ IV PRN (08:05)
--- NOTE | 2019-04-05 08:05 | Anesthesia Day of Surgery ---
Anesthesia Day of Surgery - Day of Surgery Patient Examined: Yes Patient H&P Reviewed: Yes Patient is NPO: Yes
--- NOTE | 2019-04-05 08:05 | Anesthesia Consultation ---
Anesthesia Consult and Med Hx Date of service: 04/05/19 - Airway Anesthetic Teeth Evaluation: Good ROM Head & Neck: Adequate Mental/Hyoid Distance: Adequate Mallampati Class: Class II Intubation Access Assessment: Probably Good - Pulmonary Exam CTA: Yes - Cardiac Exam Cardiac Exam: RRR - Pre-Operative Health Status ASA Pre-Surgery Classification: ASA2 Proposed Anesthetic Plan: General - Pulmonary Hx Smoking: Yes Hx Respiratory Symptoms: No Hx Sleep Apnea: No (JOSELUIS PRE SCREEN HIGH RISK) - Cardiovascular System Hx Hypertension: Yes Hx Heart Attack/AMI: No - Central Nervous System CVA: Yes (TIA 2016) - Gastrointestinal Hx Gastroesophageal Reflux Disease: No - Endocrine Hx Renal Disease: No Hx Liver Disease: No Hx Insulin Dependent Diabetes: No Hx Non-Insulin Dependent Diabetes: No Hx Thyroid Disease: No - Additional Comments Anesthesia Medical History Comments: No hx anesthetic complications.
[2019-04-05] MEDS ORDERED: methylPREDNISolone ACETATE 40 MG/1 ML INJ ONE (08:21)
[2019-04-05] MEDS ORDERED: BUPIVACAINE/PF (0.5%) 5 MG/1 ML 30 ML VIAL INFILTRATI ONE (08:21)
[2019-04-05] MEDS ORDERED: BUPIVACAINE-EPINEPHRINE/PF 0.5%-1:200,000 (30 ML) VIAL INFILTRATI ONE ×2 (08:22→09:56)
[2019-04-05] MEDS ORDERED: HYDROmorphone 1 MG/1 ML INJ ONE (08:23)
[2019-04-05] MEDS ORDERED: LIDOCAINE MPF (2%) 20 MG/1 ML VIAL 5 ML ONE (08:24)
[2019-04-05] MEDS ORDERED: PROPOFOL 200 MG/20 ML VIAL IV ONE (08:24)
[2019-04-05] MEDS ORDERED: SODIUM CHLORIDE 0.9% IRRIG SOLN 3000 ML IR ONE (09:22)
[2019-04-05] MEDS ORDERED: methylPREDNISolone ACETATE 40 MG/1 ML INJ INTRA-ARTI ONE (09:56)
[2019-04-05] MEDS ORDERED: KETOROLAC 30 MG/1 ML INJ ONE (10:01)
[2019-04-05] MEDS ORDERED: ONDANSETRON 4 MG/2 ML INJ ONE (10:01)
--- NOTE | 2019-04-05 10:22 | Procedure Note ---
Date of procedure: 04/05/19 Pre-op diagnosis: medial meniscus tear left knee Post-op diagnosis: same Procedure: Arthroscopy left knee with partial medial meniscectomy and abrasion chondroplasty Procedure The patient was brought to the OR placed in the OR table in supine position following an induction with Mac anesthesia the patient's left lower extremity was prepped and draped in the usual sterile manner.A timeout procedure was done to identify the patient and the correct operative site. The leg was then exsanguinated followed by inflation of the pneumatic tourniquet to 300 mmHg. Routine arthroscopic portals were made at the infrapatellar region following introduction of the arthroscope and insufflation of the knee joint with saline solution examination of the knee revealed the findings patient was noted to have a radial flap tear with extrusion of the tear in the posterior horn medial meniscus along with 3 chondromalacia involving both the femoral and tibial articular surfaces. The intercondylar notch was explored the anterior cruciate ligament appeared to be intact the scope was then placed into the lateral compartment and the lateral meniscus appeared to be intact without any evidence of tears there was grade 2 chondromalacia in the lateral compartment otherwise unremarkable next attention was turned back to the medial compartment using combination of tissue graspers meniscal biters and radiofrequency the meniscal tear was debrided back to healthy-appearing cartilage in addition the arthroscopic shaver was used to debride the degenerative cartilage from both the femoral and tibial surfaces care was taken not to be too aggressive however. next the wound was copiously irrigated and was closed following removal of the arthroscope and inflow cannula.. The stab wounds were repaired unit nylon and mixture of Depo-Medrol and Marcaine was injected this was followed by application of postoperative dressings. The patient tolerated the procedure and there were no complications Anesthesia: MAC Surgeon: MARISSA STILL Top Lift Compresser: RAFAEL HAMPTON Estimated blood loss: minimal Pathology: none Condition: stable Disposition: PACU
[2019-04-05 11:30] VITALS: BP 136/62
--- NOTE | 2019-04-05 12:14 | Post Anesthesia Evaluation ---
- Post Anesthesia Evaluation Patient Participated: Yes Airway Patent: Yes Stable Respiratory Function: Yes Nausea/Vomiting: No Temp > 96.8F: Yes Pain Manageable: Yes Adequeate Hydration: Yes Anesthesia Complications: No
== END 2019-04-05 11:25 | disposition home or self-care (01) ==
LOC: OR 06:07
PROVIDERS: ATTEND Orthopaedic Surgery
DX: S83.242A Other tear of medial meniscus, current injury, left knee, initial encounter (principal); I10 Essential (primary) hypertension; E78.00 Pure hypercholesterolemia, unspecified; F41.9 Anxiety disorder, unspecified; F32.9 Major depressive disorder, single episode, unspecified; Z98.51 Tubal ligation status; Z87.891 Personal history of nicotine dependence; Z79.899 Other long term (current) drug therapy; Z72.89 Other problems related to lifestyle; Z98.890 Other specified postprocedural states; X58.XXXA Exposure to other specified factors, initial encounter; Y93.89 Activity, other specified; Y92.89 Other specified places as the place of occurrence of the external cause; Y99.8 Other external cause status
CPT/HCPCS: 29881; A4217; J0690; J1030; J1170; J1885; J2250; J2405; J2704; J7120

== ENCOUNTER 2019-07-30 22:20 | Emergency (ER) | payer BC ==
--- NOTE | 2019-07-30 22:28 | Emergency Department Report ---
Blank Doc - Documentation Documentation: 54-year-old female that presents with chest pain and SOB. This initial assessment/diagnostic orders/clinical plan/treatment(s) is/are subject to change based on patient's health status, clinical progression and re- assessment by fellow clinical providers in the ED. Further treatment and workup at subsequent clinical providers discretion. Patient/guardians urged not to elope from the ED as their condition may be serious if not clinically assessed and managed. Initial orders include: 1- Patient sent to [facility] for further evaluation and treatment 2- labs 3- EKG 4- CXR
--- NOTE | 2019-07-30 23:06 | XRay Report ---
CHEST 2 VIEWS INDICATION / CLINICAL INFORMATION: Chest Pain. COMPARISON: 10/17/2018 FINDINGS: SUPPORT DEVICES: None. HEART / MEDIASTINUM: No significant abnormality. LUNGS / PLEURA: No significant pulmonary or pleural abnormality. .No pneumothorax. ADDITIONAL FINDINGS: No significant additional findings. IMPRESSION: 1. No acute findings. Signer Name: Basil Aragon MD Signed: 07/30/2019 11:01 PM Workstation Name: [id number]
[2019-07-30 23:30] LABS: Basophils # (Auto) 0.1 K/mm3 (0.0-0.1); Eosinophils # (Auto) 0.1 K/mm3 (0.0-0.4); Eosinophils % (Auto) 0.7 % (0.0-4.3); Hematocrit 42.1 % (30.3-42.9); Hemoglobin 14.7 gm/dl (10.1-14.3); Lymphocytes # (Auto) 2.6 K/mm3 (1.2-5.4); Lymphocytes % (Auto) 30.3 % (13.4-35.0); Mean Corpuscular HGB Conc 35 % (30-34); Mean Corpuscular Volume 91 fl (79-97); Monocytes # (Auto) 0.6 K/mm3 (0.0-0.8); Monocytes % (Auto) 7.4 % (0.0-7.3); Platelet Count 283 K/mm3 (140-440); Red Blood Count 4.62 M/mm3 (3.65-5.03); Red Cell Distribution Width 12.7 % (13.2-15.2)
[2019-07-30 23:55] LABS: Alanine Aminotransferase 21 units/L (7-56); Albumin 4.8 g/dL (3.9-5); BUN/Creatinine Ratio 26; Blood Urea Nitrogen 18 mg/dL (7-17); Calcium 9.7 mg/dL (8.4-10.2); Hemolysis Index 4
[2019-07-31 00:02] LABS: INR 0.96 (0.87-1.13)
[2019-07-31 00:04] LABS: Partial Thromboplastin Time 30.7 Sec. (24.2-36.6)
[2019-07-31 01:45] VITALS: BP 142/70
--- NOTE | 2019-07-31 01:45 | Emergency Department Report ---
ED Chest Pain HPI - General Chief Complaint: Chest Pain Stated Complaint: CHEST PAIN Time Seen by Provider: 07/30/19 22:27 Source: patient Mode of arrival: Ambulatory Limitations: No Limitations - History of Present Illness Initial Comments: is a 54-year-old female with past medical history of hypertension who had her lisinopril dose increased from 10 mg to 20 mg earlier today. Patient states for the past several days she "just felt funny". Patient works here in our emergency department. Patient states she took her blood pressure this evening and saw that her systolic was approximately 160. Patient states after this she became clammy and sweaty with facial flushing. Patient's felt some tightness in the chest. Patient instructed emergency department for evaluation of chest discomfort. Patient has a stress test scheduled for 2 days from now. Quality: heaviness Improves With: nothing Worsens With: nothing re: diaphoresis. denies: nausea, vomting, dyspnea Other Symptoms: denies: cough, fever, syncope, acid taste in mouth, leg swelling, palpitations - Related Data Home Medications Medication Instructions Recorded Confirmed Last Taken lisinopriL [Zestril TAB] 10 mg PO QDAY 03/30/17 03/27/19 04/04/19 18:00 Cymbalta 30 mg PO DAILY 08/29/18 03/27/19 04/04/19 18:00 Doxepin 100 mg PO QHS 08/29/18 03/27/19 04/04/19 18:00 Simvastatin 20 mg PO DAILY 08/29/18 03/27/19 04/04/19 18:00 Control Pills-Low Dose 1 tab PO DAILY 03/27/19 03/27/19 04/04/19 18:00 traMADoL [Ultram] 50 mg PO Q4HR PRN 03/27/19 03/27/19 04/04/19 18:00 Previous Rx's Medication Instructions Recorded Last Taken Type HYDROcodone/APAP 5-325 [[place] 1 each PO Q4HR PRN #15 tablet 04/05/19 Unknown Rx 5-325 mg TAB] Allergies Allergy/AdvReac Type Severity Reaction Status Date / Time No Known Allergies Allergy Verified 10/17/18 17:41 Heart Score - HEART Score History: Slightly suspicious EKG: Normal Age: 45-65 Risk factors: 1-2 risk factors Troponin: < normal limit HEART Score: 2 ED Review of Systems ROS: Stated complaint: CHEST PAIN Other details as noted in HPI Comment: All other systems reviewed and negative ED Past Medical Hx - Past Medical History Previous Medical History?: Yes Hx Hypertension: Yes Hx Heart Attack/AMI: No Hx Liver Disease: No Hx Renal Disease: No Hx HIV: No Additional medical history: Prior TIA type Symptoms Admitted 02/07, Slurred Speech. Recent HTN since 02/07/17 - Surgical History Past Surgical History?: Yes Hx Breast Surgery: Yes (BREAST IMPLANTS) Additional Surgical History: Tubal,RIGHT TORN MENISCUS - Social History Smoking Status: Never Smoker Substance Use Type: None - Medications Home Medications: Home Medications Medication Instructions Recorded Confirmed Last Taken Type lisinopriL [Zestril TAB] 10 mg PO QDAY 03/30/17 03/27/19 04/04/19 18:00 History Cymbalta 30 mg PO DAILY 08/29/18 03/27/19 04/04/19 18:00 History Doxepin 100 mg PO QHS 08/29/18 03/27/19 04/04/19 18:00 History Simvastatin 20 mg PO DAILY 08/29/18 03/27/19 04/04/19 18:00 History Control Pills-Low Dose 1 tab PO DAILY 03/27/19 03/27/19 04/04/19 18:00 History traMADoL [Ultram] 50 mg PO Q4HR PRN 03/27/19 03/27/19 04/04/19 18:00 History HYDROcodone/APAP 5-325 [[place] 1 each PO Q4HR PRN #15 tablet 04/05/19 Unknown Rx 5-325 mg TAB] ED Physical Exam - General Limitations: No Limitations General appearance: alert, in no apparent distress - Head Head exam: Present: atraumatic, normocephalic - Eye Eye exam: Present: normal appearance - ENT ENT exam: Present: mucous membranes moist - Neck Neck exam: Present: normal inspection - Respiratory Respiratory exam: Present: normal lung sounds bilaterally. Absent: respiratory distress, wheezes, rales, rhonchi - Cardiovascular Cardiovascular Exam: Present: regular rate, normal rhythm. Absent: systolic murmur, diastolic murmur, rubs, gallop - GI/Abdominal GI/Abdominal exam: Present: soft, normal bowel sounds. Absent: distended, tenderness, guarding, rebound - Extremities Exam Extremities exam: Present: normal inspection - Back Exam Back exam: Present: normal inspection - Neurological Exam Neurological exam: Present: alert, oriented X3 - Psychiatric Psychiatric exam: Present: normal affect, normal mood - Skin Skin exam: Present: warm, dry, intact, normal color. Absent: rash ED Course Vital Signs 07/30/19 07/30/19 07/30/19 22:24 22:27 23:20 Temperature 98.8 F 98.8 F Pulse Rate 80 81 Respiratory 18 18 Rate Blood Pressure 152/87 152/87 O2 Sat by Pulse 99 100 96 Oximetry ED Medical Decision Making - Lab Data Result diagrams: 07/30/19 23:02 07/30/19 23:02 Lab Results 07/30/19 07/30/19 07/30/19 Range/Units 23:02 23:02 23:02 WBC 8.5 (4.5-11.0) K/mm3 RBC 4.62 (3.65-5.03) M/mm3 Hgb 14.7 H (10.1-14.3) gm/dl Hct 42.1 (30.3-42.9) % MCV 91 (79-97) fl MCH 32 (28-32) pg MCHC 35 H (30-34) % RDW 12.7 L (13.2-15.2) % Plt Count 283 (140-440) K/mm3 Lymph % (Auto) 30.3 (13.4-35.0) % Dawson % (Auto) 7.4 H (0.0-7.3) % Eos % (Auto) 0.7 (0.0-4.3) % Baso % (Auto) 1.0 (0.0-1.8) % Lymph # 2.6 (1.2-5.4) K/mm3 Dawson # 0.6 (0.0-0.8) K/mm3 Eos # 0.1 (0.0-0.4) K/mm3 Baso # 0.1 (0.0-0.1) K/mm3 Seg Neutrophils % 60.6 (40.0-70.0) % Seg Neutrophils # 5.2 (1.8-7.7) K/mm3 PT 12.9 (12.2-14.9) Sec. INR 0.96 (0.87-1.13) APTT 30.7 (24.2-36.6) Sec. Sodium 137 (137-145) mmol/L Potassium 3.9 (3.6-5.0) mmol/L Chloride 99.6 (98-107) mmol/L Carbon Dioxide 21 L (22-30) mmol/L Anion Gap 20 mmol/L BUN 18 H (7-17) mg/dL Creatinine 0.7 (0.7-1.2) mg/dL Estimated GFR > 60 ml/min BUN/Creatinine Ratio 26 % Glucose 103 H (65-100) mg/dL Calcium 9.7 (8.4-10.2) mg/dL Total Bilirubin 0.40 (0.1-1.2) mg/dL AST 23 (5-40) units/L ALT 21 (7-56) units/L Alkaline Phosphatase 96 (35-129) units/L Troponin T < 0.010 (0.00-0.029) ng/mL Total Protein 7.5 (6.3-8.2) g/dL Albumin 4.8 (3.9-5) g/dL Albumin/Globulin Ratio 1.8 % 07/31/19 Range/Units 00:36 WBC (4.5-11.0) K/mm3 RBC (3.65-5.03) M/mm3 Hgb (10.1-14.3) gm/dl Hct (30.3-42.9) % MCV (79-97) fl MCH (28-32) pg MCHC (30-34) % RDW (13.2-15.2) % Plt Count (140-440) K/mm3 Lymph % (Auto) (13.4-35.0) % Dawson % (Auto) (0.0-7.3) % Eos % (Auto) (0.0-4.3) % Baso % (Auto) (0.0-1.8) % Lymph # (1.2-5.4) K/mm3 Dawson # (0.0-0.8) K/mm3 Eos # (0.0-0.4) K/mm3 Baso # (0.0-0.1) K/mm3 Seg Neutrophils % (40.0-70.0) % Seg Neutrophils # (1.8-7.7) K/mm3 PT (12.2-14.9) Sec. INR (0.87-1.13) APTT (24.2-36.6) Sec. Sodium (137-145) mmol/L Potassium (3.6-5.0) mmol/L Chloride (98-107) mmol/L Carbon Dioxide (22-30) mmol/L Anion Gap mmol/L BUN (7-17) mg/dL Creatinine (0.7-1.2) mg/dL Estimated GFR ml/min BUN/Creatinine Ratio % Glucose (65-100) mg/dL Calcium (8.4-10.2) mg/dL Total Bilirubin (0.1-1.2) mg/dL AST (5-40) units/L ALT (7-56) units/L Alkaline Phosphatase (35-129) units/L Troponin T < 0.010 (0.00-0.029) ng/mL Total Protein (6.3-8.2) g/dL Albumin (3.9-5) g/dL Albumin/Globulin Ratio % - EKG Data -: EKG Interpreted by Me EKG shows normal: sinus rhythm, axis, intervals, QRS complexes, ST-T waves - EKG Data Interpretation: normal EKG - Radiology Data CXR WNL - Medical Decision Making Patient believes that she became anxious after saying that her blood pressure was elevated. We did have a conversation about her blood pressure and how even when her medications changed to slam me that her chronic hypertension will be fixed immediately. The patient has had 2 negative troponins here in emergency department is been ruled out for an acute AL. Patient is a good candidate for outpatient therapy. Patient has a harsh 2 and has a stress test or reschedule the patient is safe for discharge. Patient should continue with her blood pressure regimen. Critical care attestation.: If time is entered above; I have spent that time in minutes in the direct care of this critically ill patient, excluding procedure time. ED Disposition Clinical Impression: Atypical chest pain, Hypertensive urgency Disposition: DC-01 TO HOME OR SELFCARE Is pt being admited?: No Does the pt Need Aspirin: No Condition: Stable Instructions: Chest Pain (ED), Hypertension (ED) Referrals: PRIMARY CARE, [Primary Care Provider] - 3-5 Days Time of Disposition: 01:45
== END 2019-07-31 02:01 | disposition home or self-care (01) ==
LOC: ED 22:20
DX: R07.89 Other chest pain (principal); I16.0 Hypertensive urgency; I10 Essential (primary) hypertension; Z98.890 Other specified postprocedural states; Z98.51 Tubal ligation status; Z79.899 Other long term (current) drug therapy
CPT/HCPCS: 36415; 71046; 80053; 84484; 85025; 85610; 85730; 93005; 93010

== ENCOUNTER 2019-08-22 13:24 | Outpatient (CLI) | payer BC ==
[2019-08-22 13:44] LABS: Hematocrit 40.3 % (30.3-42.9); Hemoglobin 13.9 gm/dl (10.1-14.3); Mean Corpuscular HGB Conc 35 % (30-34); Mean Corpuscular Volume 92 fl (79-97); Platelet Count 275 K/mm3 (140-440); Red Blood Count 4.39 M/mm3 (3.65-5.03); Red Cell Distribution Width 12.9 % (13.2-15.2)
[2019-08-22 14:01] LABS: Alanine Aminotransferase 16 units/L (7-56); BUN/Creatinine Ratio 23; Blood Urea Nitrogen 16 mg/dL (7-17); Calcium 9.4 mg/dL (8.4-10.2); Chol/HDL Ratio 3.81 %; HDL Cholesterol 58 mg/dL (40-59); Hemolysis Index 15; LDL Cholesterol,Direct 149 mg/dL (50-130)
== END 2019-08-22 13:25 | disposition home or self-care (01) ==
LOC: LAB 13:24
PROVIDERS: ATTEND Specialist
DX: I10 Essential (primary) hypertension (principal); R07.9 Chest pain, unspecified; F41.9 Anxiety disorder, unspecified
CPT/HCPCS: 36415; 80053; 80061; 84443; 84484; 85027

== ENCOUNTER 2020-02-21 12:08 | Outpatient (CLI) | payer BC ==
--- NOTE | 2020-02-22 09:53 | Mammography Report ---
DIGITAL SCREENING MAMMOGRAM WITH CAD, 02/21/2020 INDICATION: Routine screening mammography. TECHNIQUE: Digital bilateral 2D mammography was obtained in the craniocaudal and mediolateral obliq ue projections. This examination was interpreted with the benefit of Computer-Aided Detection analysi s. COMPARISON: 01/27/2018, 10/29/2015 FINDINGS: Breast Density: The breasts are almost entirely fatty. There is no evidence of dominant mass, suspicious calcifications or architectural distortion in eithe r breast. Bilateral retroglandular saline implants are intact. IMPRESSION: Follow up recommendation: Routine yearly BI-RADS Category 2: Benign. A "normal" or negative report should not discourage follow up or biopsy of a clinically significant f inding. A written summary of these findings will be mailed to the patient. The patient will be entered into a mammography reporting system which will generate a reminder letter for the patient's next appointmen t at the appropriate interval. The [employer] recommends yearly mammograms starting at age 40 and continuing as l mery as a woman is in good health. Breast MRI is recommended for women with an approximate 20-25% or greater lifetime risk of breast cancer, including women with a strong family history of breast or ova ignacio cancer or who have been treated for Hodgkin's disease. Signer Name: Car Carmen MD Signed: 02/22/2020 9:49 AM Workstation Name: [id number]
== END 2020-02-21 12:09 | disposition home or self-care (01) ==
LOC: MAMMO 12:08
PROVIDERS: ATTEND Specialist
DX: Z12.31 Encounter for screening mammogram for malignant neoplasm of breast (principal); N64.89 Other specified disorders of breast
CPT/HCPCS: 77067

== ENCOUNTER 2020-02-23 15:23 | Emergency (ER) | payer BC ==
[2020-02-23 15:30] VITALS: BP 153/77
--- NOTE | 2020-02-23 15:55 | XRay Report ---
RIGHT ANKLE 4 VIEWS INDICATION: Right ankle trauma, swelling. COMPARISON: No relevant prior imaging study available. FINDINGS: There is extensive soft tissue swelling, greatest anterolaterally. No acute, displaced fracture or dislocation is seen. There is no ankle mortise widening. There is mil d calcaneal enthesopathy. IMPRESSION: 1. Anterolateral soft tissue swelling without underlying displaced fracture. Signer Name: Tim Dawson MD Signed: 02/23/2020 3:51 PM Workstation Name: [id number]
--- NOTE | 2020-02-23 16:34 | Emergency Department Report ---
ED Lower Extremity HPI - General Chief Complaint: Extremity Injury, Lower Stated Complaint: ANKLE PAIN Time Seen by Provider: 02/23/20 15:53 Source: patient Mode of arrival: Ambulatory Limitations: No Limitations - History of Present Illness Initial Comments: 55-year-old female was outside doing yard work excellently stepped into a hole causing her to roll her ankle and fall which was followed by pain and swelling which worsened with ambulation and palpation. She reports hearing a cracking/crackling sensation at the time of the injury and is worried about a fracture. No pre-existing injury MD Complaint: ankle injury -: Gradual Injury: Ankle: Right, Foot: Right Type of Injury: inversion Place: home Severity: mild, moderate Worsens With: weight bearing, movement, palpation - Related Data Home Medications Medication Instructions Recorded Confirmed Last Taken lisinopriL [Zestril TAB] 10 mg PO QDAY 03/30/17 03/27/19 04/04/19 18:00 Cymbalta 30 mg PO DAILY 08/29/18 03/27/19 04/04/19 18:00 Doxepin 100 mg PO QHS 08/29/18 03/27/19 04/04/19 18:00 Simvastatin 20 mg PO DAILY 08/29/18 03/27/19 04/04/19 18:00 Control Pills-Low Dose 1 tab PO DAILY 03/27/19 03/27/19 04/04/19 18:00 Previous Rx's Medication Instructions Recorded Last Taken Type HYDROcodone/APAP 5-325 [[place] 1 each PO Q4HR PRN #15 tablet 04/05/19 Unknown Rx 5-325 mg TAB] Ibuprofen [Motrin 600 MG tab] 600 mg PO Q8H PRN #30 tablet 12/22/19 Unknown Rx traMADoL [Ultram 50 MG tab] 50 mg PO Q4HR PRN #12 tab 12/22/19 Unknown Rx Ketorolac [Toradol] 10 mg PO Q6H PRN #20 tablet 02/23/20 Unknown Rx Allergies Allergy/AdvReac Type Severity Reaction Status Date / Time No Known Allergies Allergy Verified 10/17/18 17:41 ED Review of Systems ROS: Stated complaint: ANKLE PAIN Other details as noted in HPI Comment: All other systems reviewed and negative ED Past Medical Hx - Past Medical History Previous Medical History?: Yes Hx Hypertension: Yes Hx Heart Attack/AMI: No Hx Liver Disease: No Hx Renal Disease: No Hx HIV: No Additional medical history: Prior TIA type Symptoms Admitted 02/07, Slurred Speech. Recent HTN since 02/07/17 - Surgical History Past Surgical History?: Yes Hx Breast Surgery: Yes (BREAST IMPLANTS) Additional Surgical History: Tubal,RIGHT TORN MENISCUS - Social History Smoking Status: Never Smoker Substance Use Type: None - Medications Home Medications: Home Medications Medication Instructions Recorded Confirmed Last Taken Type lisinopriL [Zestril TAB] 10 mg PO QDAY 03/30/17 03/27/19 04/04/19 18:00 History Cymbalta 30 mg PO DAILY 08/29/18 03/27/19 04/04/19 18:00 History Doxepin 100 mg PO QHS 08/29/18 03/27/19 04/04/19 18:00 History Simvastatin 20 mg PO DAILY 08/29/18 03/27/19 04/04/19 18:00 History Control Pills-Low Dose 1 tab PO DAILY 03/27/19 03/27/19 04/04/19 18:00 History HYDROcodone/APAP 5-325 [[place] 1 each PO Q4HR PRN #15 tablet 04/05/19 Unknown Rx 5-325 mg TAB] Ibuprofen [Motrin 600 MG tab] 600 mg PO Q8H PRN #30 tablet 12/22/19 Unknown Rx traMADoL [Ultram 50 MG tab] 50 mg PO Q4HR PRN #12 tab 12/22/19 Unknown Rx Ketorolac [Toradol] 10 mg PO Q6H PRN #20 tablet 02/23/20 Unknown Rx ED Physical Exam - General Limitations: No Limitations General appearance: alert, in no apparent distress - Head Head exam: Present: atraumatic, normocephalic - Eye Eye exam: Present: normal appearance - ENT ENT exam: Present: normal exam, normal orophraynx, mucous membranes moist - Neck Neck exam: Present: normal inspection - Respiratory Respiratory exam: Present: normal lung sounds bilaterally. Absent: respiratory distress - Cardiovascular Cardiovascular Exam: Present: regular rate, normal rhythm. Absent: systolic murmur, diastolic murmur, rubs, gallop - GI/Abdominal GI/Abdominal exam: Present: soft, normal bowel sounds - Extremities Exam Extremities exam: Present: normal inspection, tenderness, normal capillary refill - Expanded Lower Extremity Exam Right Ankle exam: Present: full ROM, tenderness, swelling. Absent: abrasion, laceration, dislocation, erythema, anterior draw sign - Back Exam Back exam: Present: normal inspection - Neurological Exam Neurological exam: Present: alert, oriented X3, CN II-XII intact, normal gait - Psychiatric Psychiatric exam: Present: normal affect, normal mood - Skin Skin exam: Present: warm, dry, intact, normal color. Absent: rash ED Course Vital Signs 02/23/20 15:29 Temperature 98.0 F Pulse Rate 77 Respiratory 18 Rate Blood Pressure 153/77 [Right] O2 Sat by Pulse 94 Oximetry Critical care attestation.: If time is entered above; I have spent that time in minutes in the direct care of this critically ill patient, excluding procedure time. ED Disposition Clinical Impression: Ankle sprain Disposition: DC- TO HOME OR SELFCARE Is pt being admited?: No Does the pt Need Aspirin: No Condition: Stable Instructions: Ankle Stirrup Splint (ED), Ankle Sprain (ED), Ice Pack Application (ED) Prescriptions: Ketorolac [Toradol] 10 mg PO Q6H PRN #20 tablet PRN Reason: Pain Referrals: KIMBERLY MAHER MD [Primary Care Provider] - 3-5 Days
== END 2020-02-23 16:42 | disposition home or self-care (01) ==
LOC: ED 15:23
DX: S93.491A Sprain of other ligament of right ankle, initial encounter (principal); I10 Essential (primary) hypertension; Z98.51 Tubal ligation status; Z79.899 Other long term (current) drug therapy; W18.39XA Other fall on same level, initial encounter; Y93.89 Activity, other specified; Y92.89 Other specified places as the place of occurrence of the external cause; Y99.8 Other external cause status

== ENCOUNTER 2020-02-27 18:20 | Emergency (ER) | payer BC ==
[2020-02-27 18:40] VITALS: BP 144/82
--- NOTE | 2020-02-27 18:51 | Emergency Department Report ---
ED General Adult HPI - General Chief complaint: Extremity Injury, Lower Stated complaint: ANKLE PAIN Time Seen by Provider: 02/27/20 18:41 Source: patient Mode of arrival: Ambulatory Limitations: No Limitations - History of Present Illness Initial comments: 55-year-old female presents to the emergency room for right ankle and leg swelling. Patient states that she slipped Tuesday while working in the yard came to the emergency room and x-rays reported showed no fracture. Patient now has swelling and redness on the lateral and medial malleolus with streaking up the ankle. Patient states that she was placed on Toradol which helped some but it does make her little sleepy. Patient denies any fever or chills but she does report short of breath and was noted in triage that her oxygen saturations was 93% on room air. 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 Onset/Timin -: days(s) Location: right, lower extremity (Ankle) Radiation: proximal Severity scale (0 -10): 7 Quality: aching, sharp Consistency: intermittent Improves with: immobilization, rest Worsens with: movement Associated Symptoms: shortness of breath. denies: chest pain, cough, fever/chills - Related Data Home Medications Medication Instructions Recorded Confirmed Last Taken lisinopriL [Zestril TAB] 10 mg PO QDAY 03/30/17 03/27/19 04/04/19 18:00 Cymbalta 30 mg PO DAILY 08/29/18 03/27/19 04/04/19 18:00 Doxepin 100 mg PO QHS 08/29/18 03/27/19 04/04/19 18:00 Simvastatin 20 mg PO DAILY 08/29/18 03/27/19 04/04/19 18:00 Control Pills-Low Dose 1 tab PO DAILY 03/27/19 03/27/19 04/04/19 18:00 Previous Rx's Medication Instructions Recorded Last Taken Type HYDROcodone/APAP 5-325 [[place] 1 each PO Q4HR PRN #15 tablet 04/05/19 Unknown Rx 5-325 mg TAB] Ibuprofen [Motrin 600 MG tab] 600 mg PO Q8H PRN #30 tablet 12/22/19 Unknown Rx traMADoL [Ultram 50 MG tab] 50 mg PO Q4HR PRN #12 tab 12/22/19 Unknown Rx Ketorolac [Toradol] 10 mg PO Q6H PRN #20 tablet 02/23/20 Unknown Rx Clindamycin [Clindamycin CAP] 300 mg PO Q8H 10 Days #30 cap 02/27/20 Unknown Rx Allergies Allergy/AdvReac Type Severity Reaction Status Date / Time No Known Allergies Allergy Verified 10/17/18 17:41 ED Review of Systems ROS: Stated complaint: ANKLE PAIN Other details as noted in HPI ED Past Medical Hx - Past Medical History Hx Hypertension: Yes Hx Heart Attack/AMI: No Hx Liver Disease: No Hx Renal Disease: No Hx HIV: No Additional medical history: Prior TIA type Symptoms Admitted 02/07, Slurred Speech. Recent HTN since 02/07/17 - Surgical History Hx Breast Surgery: Yes (BREAST IMPLANTS) Additional Surgical History: Tubal,RIGHT TORN MENISCUS - Social History Smoking Status: Never Smoker Substance Use Type: Alcohol - Medications Home Medications: Home Medications Medication Instructions Recorded Confirmed Last Taken Type lisinopriL [Zestril TAB] 10 mg PO QDAY 03/30/17 03/27/19 04/04/19 18:00 History Cymbalta 30 mg PO DAILY 08/29/18 03/27/19 04/04/19 18:00 History Doxepin 100 mg PO QHS 08/29/18 03/27/19 04/04/19 18:00 History Simvastatin 20 mg PO DAILY 08/29/18 03/27/19 04/04/19 18:00 History Control Pills-Low Dose 1 tab PO DAILY 03/27/19 03/27/19 04/04/19 18:00 History HYDROcodone/APAP 5-325 [[place] 1 each PO Q4HR PRN #15 tablet 04/05/19 Unknown Rx 5-325 mg TAB] Ibuprofen [Motrin 600 MG tab] 600 mg PO Q8H PRN #30 tablet 12/22/19 Unknown Rx traMADoL [Ultram 50 MG tab] 50 mg PO Q4HR PRN #12 tab 12/22/19 Unknown Rx Ketorolac [Toradol] 10 mg PO Q6H PRN #20 tablet 02/23/20 Unknown Rx Clindamycin [Clindamycin CAP] 300 mg PO Q8H 10 Days #30 cap 02/27/20 Unknown Rx ED Physical Exam - General Limitations: No Limitations General appearance: alert, in no apparent distress - Head Head exam: Present: atraumatic, normocephalic - Eye Eye exam: Present: normal appearance - ENT ENT exam: Present: mucous membranes moist - Neck Neck exam: Present: normal inspection - Expanded Lower Extremity Exam Right Hip exam: Present: normal inspection Upper Leg exam: Present: normal inspection Knee exam: Present: normal inspection Lower Leg exam: Present: normal inspection Ankle exam: Present: full ROM, tenderness, swelling, erythema Foot/Toe exam: Present: full ROM, swelling. Absent: tenderness Neuro vascular tendon exam: Present: no vascular compromise Gait: Positive: observed and normal - Back Exam Back exam: Present: normal inspection - Neurological Exam Neurological exam: Present: alert, oriented X3 - Psychiatric Psychiatric exam: Present: normal affect, normal mood - Skin Skin exam: Present: warm, dry, intact, normal color. Absent: rash ED Course Vital Signs 02/27/20 18:38 Temperature 97.9 F Pulse Rate 82 Respiratory 18 Rate Blood Pressure 144/82 O2 Sat by Pulse 93 Oximetry ED Medical Decision Making - Lab Data Result diagrams: 02/27/20 19:00 02/27/20 19:00 - Radiology Data Radiology results: report reviewed [facility] [address] [place] [address] XRay Report Signed Patient: DANK ERIC MR#: [id number] : 1965 Acct:[id number] Age/Sex: 55 / F ADM Date: 02/27/20 Loc: ED Attending Dr: Ordering Physician: AZUL OTERO Date of Service: 02/27/20 Procedure(s): XR chest routine 2V Accession Number(s): [id number] cc: AZUL OTERO Fluoro Time In Minutes: CHEST 2 VIEWS INDICATION / CLINICAL INFORMATION: Shortness of breath decreased oxygen. COMPARISON: 07/30/2019 FINDINGS: SUPPORT DEVICES: None. HEART / MEDIASTINUM: No significant abnormality. LUNGS / PLEURA: No significant pulmonary or pleural abnormality. No pneumothorax. ADDITIONAL FINDINGS: No significant additional findings. IMPRESSION: 1. No acute findings. No interval change. Signer Name: Nalini Barnett MD Signed: 02/27/2020 6:56 PM Workstation Name: [id number] Transcribed By: JR Dictated By: Nalini Barnett MD Electronically Authenticated By: Nalini Barnett MD Signed Date/Time: 02/27/201855 DD/ 54 TD/TT: - Medical Decision Making 55-year-old female presents to the emergency room for right ankle and leg swelling. Patient states that she slipped Tuesday while working in the yard came to the emergency room and x-rays reported showed no fracture. Patient now has swelling and redness on the lateral and medial malleolus with streaking up the ankle. Patient states that she was placed on Toradol which helped some but it does make her little sleepy. Patient denies any fever or chills but she does report short of breath and was noted in triage that her oxygen saturations was 93% on room air. 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 Recheck patient's pulse ox 95% on room air heart rate 79. Patient be placed on clindamycin 300 mg every 8 hours x10 days. Patient instructed continue with your pain medication as needed. If her symptoms does not improve she needs to follow back up to the emergency room or her primary care provider. Critical care attestation.: If time is entered above; I have spent that time in minutes in the direct care of this critically ill patient, excluding procedure time. ED Disposition Clinical Impression: Cellulitis of right ankle Disposition: DC-01 TO HOME OR SELFCARE Is pt being admited?: No Does the pt Need Aspirin: No Condition: Stable Instructions: Cellulitis (ED) Additional Instructions: Chest x-ray is negative for any pulmonary disease. Lab work are stable little elevated BUN encourage you to drink more fluids. Complete antibiotics for cellulitis. Tylenol or ibuprofen or Toradol as needed. Prescriptions: Clindamycin [Clindamycin CAP] 300 mg PO Q8H 10 Days #30 cap Referrals: SURESH LUCERO MD [Staff Physician] - 3-5 Days
--- NOTE | 2020-02-27 19:01 | XRay Report ---
CHEST 2 VIEWS INDICATION / CLINICAL INFORMATION: Shortness of breath decreased oxygen. COMPARISON: 07/30/2019 FINDINGS: SUPPORT DEVICES: None. HEART / MEDIASTINUM: No significant abnormality. LUNGS / PLEURA: No significant pulmonary or pleural abnormality. No pneumothorax. ADDITIONAL FINDINGS: No significant additional findings. IMPRESSION: 1. No acute findings. No interval change. Signer Name: Nalini Barnett MD Signed: 02/27/2020 6:56 PM Workstation Name: [id number]
[2020-02-27 19:08] LABS: Basophils # (Auto) 0.1 K/mm3 (0.0-0.1); Basophils % (Auto) 0.9 % (0.0-1.8); Eosinophils # (Auto) 0.2 K/mm3 (0.0-0.4); Eosinophils % (Auto) 2.4 % (0.0-4.3); Hematocrit 37.5 % (30.3-42.9); Lymphocytes # (Auto) 1.9 K/mm3 (1.2-5.4); Lymphocytes % (Auto) 23.6 % (13.4-35.0); Mean Corpuscular HGB Conc 35 % (30-34); Mean Corpuscular Volume 92 fl (79-97); Monocytes # (Auto) 0.6 K/mm3 (0.0-0.8); Monocytes % (Auto) 7.1 % (0.0-7.3); Platelet Count 313 K/mm3 (140-440); Red Blood Count 4.09 M/mm3 (3.65-5.03); Red Cell Distribution Width 13.6 % (13.2-15.2)
[2020-02-27 19:31] LABS: Alanine Aminotransferase 35 units/L (7-56); Albumin 4.4 g/dL (3.9-5); Blood Urea Nitrogen 22 mg/dL (7-17); Calcium 9.4 mg/dL (8.4-10.2); Hemolysis Index 11
[2020-02-27 19:32] LABS: BUN/Creatinine Ratio 31
== END 2020-02-27 19:50 | disposition home or self-care (01) ==
LOC: ED 18:20
DX: L03.115 Cellulitis of right lower limb (principal); I10 Essential (primary) hypertension; Z98.51 Tubal ligation status; Z79.899 Other long term (current) drug therapy; Z98.890 Other specified postprocedural states
CPT/HCPCS: 36415; 71046; 80053; 85025; 99283

== ENCOUNTER 2020-03-04 21:38 | Emergency (ER) | payer BC ==
--- NOTE | 2020-03-04 22:02 | Emergency Department Report ---
Blank Doc - Documentation Documentation: 55-year-old female that presents with worsening SOB and had a elevated d-dimmer at 900s today. 1- This initial assessment/diagnostic orders/clinical plan/ treatment(s) is/are subject to change based on pt's health status, clinical progression and re- assessment by fellow clinical providers in the ED. Further treatment and workup at subsequent clinical provers discretion. Patient/guardians urged not to elope from ED as their condition may be serious if not clinically assessed and managed. 2-labs/CXR 3- EKG
[2020-03-04 22:08] VITALS: BP 154/66
--- NOTE | 2020-03-04 22:42 | XRay Report ---
CHEST 2 VIEWS INDICATION / CLINICAL INFORMATION: Chest pain and shortness of breath for 3 days. COMPARISON: Chest x-ray 02/27/2020 FINDINGS: SUPPORT DEVICES: None. HEART / MEDIASTINUM: No significant abnormality. LUNGS / PLEURA: No significant pulmonary or pleural abnormality. No pneumothorax. ADDITIONAL FINDINGS: No significant additional findings. IMPRESSION: 1. No acute findings. Signer Name: Gt Luna MD Signed: 03/04/2020 10:37 PM Workstation Name: [id number]
[2020-03-04 22:45] LABS: Basophils % (Auto) 0.6 % (0.0-1.8); Eosinophils # (Auto) 0.2 K/mm3 (0.0-0.4); Eosinophils % (Auto) 2.2 % (0.0-4.3); Hematocrit 38.8 % (30.3-42.9); Hemoglobin 13.8 gm/dl (10.1-14.3); Lymphocytes # (Auto) 2.1 K/mm3 (1.2-5.4); Lymphocytes % (Auto) 28.8 % (13.4-35.0); Mean Corpuscular HGB Conc 36 % (30-34); Mean Corpuscular Volume 93 fl (79-97); Monocytes # (Auto) 0.6 K/mm3 (0.0-0.8); Monocytes % (Auto) 8.7 % (0.0-7.3); Platelet Count 321 K/mm3 (140-440); Red Blood Count 4.18 M/mm3 (3.65-5.03); Red Cell Distribution Width 13.5 % (13.2-15.2)
--- NOTE | 2020-03-04 22:50 | Emergency Department Report ---
ED Shortness of Breath HPI - General Chief Complaint: Extremity Problem,Nontraumatic Stated Complaint: RIGHT FOOT PAIN, SHORTNESS OF BREATH Time Seen by Provider: 03/04/20 22:01 Source: patient Mode of arrival: Ambulatory Limitations: No Limitations - History of Present Illness Initial Comments: This is a 55-year-old female nontoxic, well nourished in appearance, no acute signs of distress presents to the ED with c/o of intermittent SOB x several days . Patient denies any chest pains. Patient also is complaining of right leg pain. Patient has been taking antibiotics for cellulitis that she was seen several days ago. Patient agrees still for pain in the right foot area and now has leg pain. X-rays was obtained during the previous visit as well. Denies any new injuries or trauma. Patient denies any upper respiratory symptoms. Patient stated that she had a elevated d-dimer that was done earlier today around 900s. Patient denies any chest pain, hemoptysis, fever, chills, nausea, vomiting, headache, stiff neck, numbness, tingling, abdominal pain. Patient denies any recent travels or long car rides. Patient denies any recent surgeries or any sick contacts. Patient denies any drug allergies. MD Complaint: shortness of breath -: days(s) Pain Scale: 0 Consistency: intermittent Improves With: nothing Worsens With: nothing Associated Symptoms: denies other symptoms Treatments Prior to Arrival: none - Related Data Home Oxygen Therapy: No Home Medications Medication Instructions Recorded Confirmed Last Taken lisinopriL [Zestril TAB] 10 mg PO QDAY 03/30/17 03/27/19 04/04/19 18:00 Cymbalta 30 mg PO DAILY 08/29/18 03/27/19 04/04/19 18:00 Doxepin 100 mg PO QHS 08/29/18 03/27/19 04/04/19 18:00 Simvastatin 20 mg PO DAILY 08/29/18 03/27/19 04/04/19 18:00 Control Pills-Low Dose 1 tab PO DAILY 03/27/19 03/27/19 04/04/19 18:00 Previous Rx's Medication Instructions Recorded Last Taken Type HYDROcodone/APAP 5-325 [[place] 1 each PO Q4HR PRN #15 tablet 04/05/19 Unknown Rx 5-325 mg TAB] Ibuprofen [Motrin 600 MG tab] 600 mg PO Q8H PRN #30 tablet 12/22/19 Unknown Rx traMADoL [Ultram 50 MG tab] 50 mg PO Q4HR PRN #12 tab 12/22/19 Unknown Rx Ketorolac [Toradol] 10 mg PO Q6H PRN #20 tablet 02/23/20 Unknown Rx Clindamycin [Clindamycin CAP] 300 mg PO Q8H 10 Days #30 cap 02/27/20 Unknown Rx Allergies Allergy/AdvReac Type Severity Reaction Status Date / Time No Known Allergies Allergy Verified 10/17/18 17:41 ED Review of Systems ROS: Stated complaint: RIGHT FOOT PAIN, SHORTNESS OF BREATH Other details as noted in HPI Constitutional: denies: chills, fever Eyes: denies: eye pain, eye discharge, vision change ENT: denies: ear pain, throat pain Respiratory: shortness of breath. denies: cough, orthopnea, SOB with exertion, SOB at rest, stridor, wheezing Cardiovascular: denies: chest pain, palpitations, dyspnea on exertion, orthopnea, edema, syncope, paroxysmal nocturnal dyspnea Endocrine: no symptoms reported Gastrointestinal: denies: abdominal pain, nausea, diarrhea Genitourinary: denies: urgency, dysuria, discharge Musculoskeletal: denies: back pain, joint swelling, arthralgia Skin: denies: rash, lesions Neurological: denies: headache, weakness, paresthesias Psychiatric: denies: anxiety, depression Hematological/Lymphatic: denies: easy bleeding, easy bruising ED Past Medical Hx - Past Medical History Hx Hypertension: Yes Hx Heart Attack/AMI: No Hx Liver Disease: No Hx Renal Disease: No Hx HIV: No Additional medical history: Prior TIA type Symptoms Admitted 02/07, Slurred Speech. Recent HTN since 02/07/17 - Surgical History Hx Breast Surgery: Yes (BREAST IMPLANTS) Additional Surgical History: Tubal,RIGHT TORN MENISCUS - Social History Smoking Status: Never Smoker Substance Use Type: Alcohol - Medications Home Medications: Home Medications Medication Instructions Recorded Confirmed Last Taken Type lisinopriL [Zestril TAB] 10 mg PO QDAY 03/30/17 03/27/19 04/04/19 18:00 History Cymbalta 30 mg PO DAILY 08/29/18 03/27/19 04/04/19 18:00 History Doxepin 100 mg PO QHS 08/29/18 03/27/19 04/04/19 18:00 History Simvastatin 20 mg PO DAILY 08/29/18 03/27/19 04/04/19 18:00 History Control Pills-Low Dose 1 tab PO DAILY 03/27/19 03/27/19 04/04/19 18:00 History HYDROcodone/APAP 5-325 [[place] 1 each PO Q4HR PRN #15 tablet 04/05/19 Unknown Rx 5-325 mg TAB] Ibuprofen [Motrin 600 MG tab] 600 mg PO Q8H PRN #30 tablet 12/22/19 Unknown Rx traMADoL [Ultram 50 MG tab] 50 mg PO Q4HR PRN #12 tab 12/22/19 Unknown Rx Ketorolac [Toradol] 10 mg PO Q6H PRN #20 tablet 02/23/20 Unknown Rx Clindamycin [Clindamycin CAP] 300 mg PO Q8H 10 Days #30 cap 02/27/20 Unknown Rx ED Physical Exam - General Limitations: No Limitations General appearance: alert, in no apparent distress - Head Head exam: Present: atraumatic, normocephalic - Eye Eye exam: Present: normal appearance - Neck Neck exam: Present: normal inspection, full ROM. Absent: tenderness, meningismus, lymphadenopathy - Respiratory Respiratory exam: Present: normal lung sounds bilaterally. Absent: respiratory distress, wheezes, rales, rhonchi, stridor, chest wall tenderness, accessory muscle use, decreased breath sounds, prolonged expiratory - Cardiovascular Cardiovascular Exam: Present: regular rate, normal rhythm, normal heart sounds. Absent: bradycardia, tachycardia, irregular rhythm, systolic murmur, diastolic murmur, rubs, gallop - GI/Abdominal GI/Abdominal exam: Present: soft, normal bowel sounds. Absent: distended, tenderness, guarding, rebound, rigid, diminished bowel sounds - Extremities Exam Extremities exam: Present: normal inspection, full ROM, tenderness, normal capillary refill. Absent: joint swelling, calf tenderness - Expanded Lower Extremity Exam Right Hip exam: Present: normal inspection, full ROM. Absent: tenderness, swelling Upper Leg exam: Present: normal inspection, full ROM. Absent: tenderness, swelling Knee exam: Present: normal inspection, full ROM. Absent: tenderness, swelling Lower Leg exam: Present: full ROM, tenderness. Absent: swelling, abrasion, laceration, ecchymosis, deformity, crepidus, dislocation, erythema, palpable cord, Lydia's sign Ankle exam: Present: normal inspection, full ROM, tenderness, swelling, erythema. Absent: abrasion, laceration, ecchymosis, deformity, crepidus, dislocation, anterior draw sign Foot/Toe exam: Present: normal inspection, full ROM. Absent: tenderness, swelling, abrasion, laceration, ecchymosis, deformity, crepidus, dislocation, erythema, amputation, puncture wound, foreign body, calcaneal tenderness, tende rness at base of 5th metatarsal, nail avulsion, subungual hematoma Neuro vascular tendon exam: Present: no vascular compromise Gait: Positive: observed and limited by pain - Back Exam Back exam: Present: normal inspection, full ROM. Absent: tenderness, CVA tenderness (R), CVA tenderness (L), muscle spasm, paraspinal tenderness, vertebral tenderness, rash noted - Neurological Exam Neurological exam: Present: alert, oriented X3, normal gait - Psychiatric Psychiatric exam: Present: normal affect, normal mood - Skin Skin exam: Present: warm, dry, intact, normal color. Absent: rash ED Course Vital Signs 03/04/20 22:07 Temperature 98.7 F Pulse Rate 74 Respiratory 18 Rate Blood Pressure 154/66 [Right] O2 Sat by Pulse 98 Oximetry - Reevaluation(s) Reevaluation #1: 03/04/20 22:51 Patient is speaking in full sentences with no signs of distress noted. ED Medical Decision Making - Lab Data Result diagrams: 03/04/20 22:20 03/04/20 22:20 Lab Results 03/04/20 03/04/20 03/04/20 Range/Units 22:20 22:20 22:20 WBC 7.4 (4.5-11.0) K/mm3 RBC 4.18 (3.65-5.03) M/mm3 Hgb 13.8 (10.1-14.3) gm/dl Hct 38.8 (30.3-42.9) % MCV 93 (79-97) fl MCH 33 H (28-32) pg MCHC 36 H (30-34) % RDW 13.5 (13.2-15.2) % Plt Count 321 (140-440) K/mm3 Lymph % (Auto) 28.8 (13.4-35.0) % Mckean % (Auto) 8.7 H (0.0-7.3) % Eos % (Auto) 2.2 (0.0-4.3) % Baso % (Auto) 0.6 (0.0-1.8) % Lymph # 2.1 (1.2-5.4) K/mm3 Mckean # 0.6 (0.0-0.8) K/mm3 Eos # 0.2 (0.0-0.4) K/mm3 Baso # 0.0 (0.0-0.1) K/mm3 Seg Neutrophils % 59.7 (40.0-70.0) % Seg Neutrophils # 4.4 (1.8-7.7) K/mm3 PT 12.4 (12.2-14.9) Sec. INR 0.91 (0.87-1.13) APTT 27.9 (24.2-36.6) Sec. D-Dimer 798.74 H (0-234) ng/mlDDU Sodium 138 (137-145) mmol/L Potassium 4.8 (3.6-5.0) mmol/L Chloride 98.6 (98-107) mmol/L Carbon Dioxide 22 (22-30) mmol/L Anion Gap 22 mmol/L BUN 23 H (7-17) mg/dL Creatinine 0.9 (0.6-1.2) mg/dL Estimated GFR > 60 ml/min BUN/Creatinine Ratio 26 % Glucose 98 (65-100) mg/dL Calcium 9.9 (8.4-10.2) mg/dL Total Bilirubin 0.40 (0.1-1.2) mg/dL AST 27 (5-40) units/L ALT 32 (7-56) units/L Alkaline Phosphatase 121 (35-129) units/L Troponin T < 0.010 (0.00-0.029) ng/mL Total Protein 7.4 (6.3-8.2) g/dL Albumin 4.6 (3.9-5) g/dL Albumin/Globulin Ratio 1.6 % Lab Results 03/04/20 03/04/20 03/04/20 Range/Units 22:20 22:20 22:20 WBC 7.4 (4.5-11.0) K/mm3 RBC 4.18 (3.65-5.03) M/mm3 Hgb 13.8 (10.1-14.3) gm/dl Hct 38.8 (30.3-42.9) % MCV 93 (79-97) fl MCH 33 H (28-32) pg MCHC 36 H (30-34) % RDW 13.5 (13.2-15.2) % Plt Count 321 (140-440) K/mm3 Lymph % (Auto) 28.8 (13.4-35.0) % Mckean % (Auto) 8.7 H (0.0-7.3) % Eos % (Auto) 2.2 (0.0-4.3) % Baso % (Auto) 0.6 (0.0-1.8) % Lymph # 2.1 (1.2-5.4) K/mm3 Mckean # 0.6 (0.0-0.8) K/mm3 Eos # 0.2 (0.0-0.4) K/mm3 Baso # 0.0 (0.0-0.1) K/mm3 Seg Neutrophils % 59.7 (40.0-70.0) % Seg Neutrophils # 4.4 (1.8-7.7) K/mm3 PT 12.4 (12.2-14.9) Sec. INR 0.91 (0.87-1.13) APTT 27.9 (24.2-36.6) Sec. D-Dimer 798.74 H (0-234) ng/mlDDU Sodium 138 (137-145) mmol/L Potassium 4.8 (3.6-5.0) mmol/L Chloride 98.6 (98-107) mmol/L Carbon Dioxide 22 (22-30) mmol/L Anion Gap 22 mmol/L BUN 23 H (7-17) mg/dL Creatinine 0.9 (0.6-1.2) mg/dL Estimated GFR > 60 ml/min BUN/Creatinine Ratio 26 % Glucose 98 (65-100) mg/dL Calcium 9.9 (8.4-10.2) mg/dL Total Bilirubin 0.40 (0.1-1.2) mg/dL AST 27 (5-40) units/L ALT 32 (7-56) units/L Alkaline Phosphatase 121 (35-129) units/L Troponin T < 0.010 (0.00-0.029) ng/mL Total Protein 7.4 (6.3-8.2) g/dL Albumin 4.6 (3.9-5) g/dL Albumin/Globulin Ratio 1.6 % 03/05/20 Range/Units 00:59 WBC (4.5-11.0) K/mm3 RBC (3.65-5.03) M/mm3 Hgb (10.1-14.3) gm/dl Hct (30.3-42.9) % MCV (79-97) fl MCH (28-32) pg MCHC (30-34) % RDW (13.2-15.2) % Plt Count (140-440) K/mm3 Lymph % (Auto) (13.4-35.0) % Mckean % (Auto) (0.0-7.3) % Eos % (Auto) (0.0-4.3) % Baso % (Auto) (0.0-1.8) % Lymph # (1.2-5.4) K/mm3 Mckean # (0.0-0.8) K/mm3 Eos # (0.0-0.4) K/mm3 Baso # (0.0-0.1) K/mm3 Seg Neutrophils % (40.0-70.0) % Seg Neutrophils # (1.8-7.7) K/mm3 PT (12.2-14.9) Sec. INR (0.87-1.13) APTT (24.2-36.6) Sec. D-Dimer (0-234) ng/mlDDU Sodium (137-145) mmol/L Potassium (3.6-5.0) mmol/L Chloride (98-107) mmol/L Carbon Dioxide (22-30) mmol/L Anion Gap mmol/L BUN (7-17) mg/dL Creatinine (0.6-1.2) mg/dL Estimated GFR ml/min BUN/Creatinine Ratio % Glucose (65-100) mg/dL Calcium (8.4-10.2) mg/dL Total Bilirubin (0.1-1.2) mg/dL AST (5-40) units/L ALT (7-56) units/L Alkaline Phosphatase (35-129) units/L Troponin T < 0.010 (0.00-0.029) ng/mL Total Protein (6.3-8.2) g/dL Albumin (3.9-5) g/dL Albumin/Globulin Ratio % - EKG Data 03/05/20 01:34 Normal sinus rhythm at [address] or T wave abnormalities. Reviewed and signed by MD. - Radiology Data Referring Physician: CORTES SUAREZ Patient Name: DANK ERIC Date of : 1965 Sex: Female Report Date: 2020-03-05 Report Status: Finalized [facility] [address] [place] [address] Vascular Lab Report Signed Patient: DANK ERIC MR#: [id number] : 1965 Acct:[id number] Age/Sex: 55 / F ADM Date: 03/04/20 Loc: ED Attending Dr: Ordering Physician: CORTES SUAREZ NP Date of Service: 03/04/20 Procedure(s): VL venous duplex LE RT Accession Number(s): [id number] cc: CORTES SUAREZ NP DUPLEX DOPPLER LOWER EXTREMITY VEINS, RIGHT INDICATION: right leg pain. TECHNIQUE: Duplex doppler imaging was performed through the veins of the right lower extremity using venous compression and other maneuvers. COMPARISON: No relevant prior imaging study available. FINDINGS: Right Common femoral vein: Negative. Right Superficial femoral vein: Negative. Right Popliteal vein: Negative. Right Calf veins: Negative. Additional findings: None.. IMPRESSION: Negative for DVT. Signer Name: Horacio Harris MD Signed: 03/05/2020 12:23 AM Workstation Name: [id number] Transcribed By: ES Dictated By: Horacio Harris MD Electronically Authenticated By: Horacio Harris MD Signed Date/Time: 03/05/2022 DD/ TD/TT: Referring Physician: CORTES SUAREZ Patient Name: DANK ERIC Date of : 1965 Sex: Female Report Date: 2020-03-05 Report Status: Finalized [address] [address] Cat Scan Report Signed Patient: DANK ERIC MR#: [id number] : 1965 Acct:[id number] Age/Sex: 55 / F ADM Date: 03/04/20 Loc: ED Attending Dr: Ordering Physician: CORTES SUAREZ NP Date of Service: 03/04/20 Procedure(s): CT angio chest Accession Number(s): [id number] cc: CORTES SUAREZ NP CT angio chest INDICATION / CLINICAL INFORMATION: P.E. PROTOCOL!!! Shortness of breath. TECHNIQUE: Axial CT images were obtained after injection of Omnipaque 350, 100 cc IV contrast using CTA protocol. 3 plane MIP / 3D reconstructions were produced. All CT scans at this location are performed using CT dose reduction for ALARA by means of automated exposure control. COMPARISON: None available. FINDINGS: The lungs contain no mass, infiltrate or pleural fluid. Negative for mediastinal mass or adenopathy. Negative for aneurysm, dissection or pulmonary embolus. Imaging of the upper abdomen is unremarkable. IMPRESSION: Negative for pulmonary embolus or pneumonia. Signer Name: Horacio Harris MD Signed: 03/05/2020 1:19 AM Workstation Name: [id number] Transcribed By: ES Dictated By: Horacio Harris MD Electronically Authenticated By: Horacio Harris MD Signed Date/Time: 03/05/20118 DD/ 4 TD/TT: Referring Physician: CORTES SUAREZ Patient Name: DANK ERIC Date of : 1965 Sex: Female Report Date: 2020-03-04 Report Status: Finalized [address] [address] XRay Report Signed Patient: DANK ERIC MR#: [id number] : 1965 Acct:[id number] Age/Sex: 55 / F ADM Date: 03/04/20 Loc: ED Attending Dr: Ordering Physician: CORTES SUAREZ NP Date of Service: 03/04/20 Procedure(s): XR chest routine 2V Accession Number(s): [id number] cc: CORTES SUAREZ NP Fluoro Time In Minutes: CHEST 2 VIEWS INDICATION / CLINICAL INFORMATION: Chest pain and shortness of breath for 3 days. COMPARISON: Chest x-ray 02/27/2020 FINDINGS: SUPPORT DEVICES: None. HEART / MEDIASTINUM: No significant abnormality. LUNGS / PLEURA: No significant pulmonary or pleural abnormality. No pneumothorax. ADDITIONAL FINDINGS: No significant additional findings. IMPRESSION: 1. No acute findings. Signer Name: Gt Luna MD Signed: 03/04/2020 10:37 PM Workstation Name: [id number] Transcribed By: TL Dictated By: Gt Luna MD Electronically Authenticated By: Gt Luna MD Signed Date/Time: 03/04/202236 DD/ 36 TD/TT: - Medical Decision Making This is a 55-year-old female that presents with left leg pain and SOB w/ ? COVID possibility. Patient is stable and was examined by me. DIMITRI and HEART score 0 pints. EKG normal sinus rhythm with no significant changes in ST. Chest xray/CTA/US DOPPLER dictated by the radiologist. PAtient is notified of the reports with no questions noted. Labs within normal limits. Negative troponin x2. Patient was instructed to Follow-up with a primary care/marketing and public relations manager doctor in 2 days or if symptoms worsen and continue return to emergency room as soon as possible. At time of discharge, the patient does not seem toxic or ill in appearance. No acute signs of distress noted. Patient agrees to discharge treatment plan of care. No further questions noted by the patient. Critical care attestation.: If time is entered above; I have spent that time in minutes in the direct care of this critically ill patient, excluding procedure time. ED Disposition Clinical Impression: Left leg pain, SOB (shortness of breath) Disposition: - TO HOME OR SELFCARE Is pt being admited?: No Does the pt Need Aspirin: No Condition: Stable Additional Instructions: Follow-up with a primary care/marketing and public relations manager doctor in 2 days or if symptoms worsen and continue return to emergency room as soon as possible. Referrals: ROSALIA MURRAY MD [Primary Care Provider] - 3-5 Days SURESH LUCERO MD [Staff Physician] - 3-5 Days AMBROCIO EATON MD [Staff Physician] - 03/07/20
[2020-03-04 22:56] LABS: INR 0.91 (0.87-1.13)
[2020-03-04 22:57] LABS: Partial Thromboplastin Time 27.9 Sec. (24.2-36.6)
[2020-03-04 23:13] LABS: Alanine Aminotransferase 32 units/L (7-56); Albumin 4.6 g/dL (3.9-5); BUN/Creatinine Ratio 26; Blood Urea Nitrogen 23 mg/dL (7-17); Calcium 9.9 mg/dL (8.4-10.2); Hemolysis Index 41
--- NOTE | 2020-03-05 00:28 | Vascular Lab Report ---
DUPLEX DOPPLER LOWER EXTREMITY VEINS, RIGHT INDICATION: right leg pain. TECHNIQUE: Duplex doppler imaging was performed through the veins of the right lower extremity using venous comp ression and other maneuvers. COMPARISON: No relevant prior imaging study available. FINDINGS: Right Common femoral vein: Negative. Right Superficial femoral vein: Negative. Right Popliteal vein: Negative. Right Calf veins: Negative. Additional findings: None.. IMPRESSION: Negative for DVT. Signer Name: Horacio Harris MD Signed: 03/05/2020 12:23 AM Workstation Name: [id number]
--- NOTE | 2020-03-05 01:24 | Cat Scan Report ---
CT angio chest INDICATION / CLINICAL INFORMATION: P.E. PROTOCOL!!! Shortness of breath. TECHNIQUE: Axial CT images were obtained after injection of Omnipaque 350, 100 cc IV contrast using CTA protocol . 3 plane MIP / 3D reconstructions were produced. All CT scans at this location are performed using C T dose reduction for ALARA by means of automated exposure control. COMPARISON: None available. FINDINGS: The lungs contain no mass, infiltrate or pleural fluid. Negative for mediastinal mass or adenopathy. Negative for aneurysm, dissection or pulmonary embolus. Imaging of the upper abdomen is unremarkable. IMPRESSION: Negative for pulmonary embolus or pneumonia. Signer Name: Horacio Harris MD Signed: 03/05/2020 1:19 AM Workstation Name: [id number]
== END 2020-03-05 01:40 | disposition home or self-care (01) ==
LOC: ED 21:38
DX: M79.605 Pain in left leg (principal); R06.02 Shortness of breath; I10 Essential (primary) hypertension; Z79.899 Other long term (current) drug therapy; Z98.890 Other specified postprocedural states; Z98.51 Tubal ligation status
CPT/HCPCS: 36415; 71046; 71275; 80053; 84484; 85025; 85379; 85610; 85730; 93005; 93971; 99285; Q9967

== ENCOUNTER 2020-04-24 12:59 | Outpatient (CLI) | payer BC ==
[2020-04-24 13:49] LABS: Hemoglobin 14.5 gm/dl (10.1-14.3); Mean Corpuscular HGB Conc 36 % (30-34); Mean Corpuscular Volume 92 fl (79-97); Platelet Count 264 K/mm3 (140-440); Red Blood Count 4.46 M/mm3 (3.65-5.03); Red Cell Distribution Width 13.4 % (13.2-15.2)
[2020-04-24 14:09] LABS: Alanine Aminotransferase 29 units/L (7-56); Albumin 4.5 g/dL (3.9-5); BUN/Creatinine Ratio 29; Blood Urea Nitrogen 20 mg/dL (7-17); Calcium 9.7 mg/dL (8.4-10.2); Chol/HDL Ratio 4.17 %; HDL Cholesterol 62 mg/dL (40-59); Hemolysis Index 7; LDL Cholesterol,Direct 146 mg/dL (50-130)
== END 2020-04-24 13:00 | disposition home or self-care (01) ==
LOC: LAB 12:59
PROVIDERS: ATTEND Internal Medicine
DX: E78.5 Hyperlipidemia, unspecified (principal); I10 Essential (primary) hypertension
CPT/HCPCS: 36415; 80053; 80061; 84443; 85027

== ENCOUNTER 2020-09-13 20:46 | Emergency (ER) | payer BC ==
[2020-09-13 20:59] VITALS: BP 149/89
--- NOTE | 2020-09-13 21:36 | Cat Scan Report ---
CT head/brain wo con INDICATION / CLINICAL INFORMATION: 55 years Female; BEST; seeing spots. TECHNIQUE: Routine CT head without contrast. All CT scans at this location are performed using CT dos e reduction for ALARA by means of automated exposure control. COMPARISON: The study is compared to the previous CT of 03/30/2017. FINDINGS: BRAIN / INTRACRANIAL CONTENTS: The brain appears to demonstrate appropriate attenuation for age witho ut significant interval change. The ventricular system remains within normal limits in size and confi guration. There is no clear CT evidence of acute intracranial hemorrhage or significant mass effect. ORBITS: No significant abnormality of visualized orbits. SINUSES / MASTOIDS: No significant abnormality in the visualized paranasal sinuses or mastoid air leeanne ls. CRANIOCERVICAL JUNCTION: No significant abnormality. ADDITIONAL FINDINGS: None. IMPRESSION: 1. There is no CT evidence of acute intracranial process. Signer Name: Tapan Acuna MD Signed: 09/13/2020 9:31 PM Workstation Name: [id number]
--- NOTE | 2020-09-13 22:23 | Emergency Department Report ---
ED Headache HPI - General Chief Complaint: Headache Stated Complaint: BLURRY VISION;SEEING SPOTS Source: patient Exam Limitations: no limitations - History of Present Illness Timing/Duration: 4-6 hours, waxing and waning Quality: mild Head Injury Location: global Recent Head Trauma: no recent headache/trauma Modifying Factors: worse with: cold therapy Associated Symptoms: denies symptoms. denies: confusion, fatigue, facial pain, fever/chills, flushing, loss of consciousness, nausea/vomiting, nasal congestion, nasal drainage, numbness in legs/feet, rash, seizures, sinus infection, stiff neck, vision changes, weakness, other Allergies/Adverse Reactions: Allergies No Known Allergies Allergy (Verified 10/17/18 17:41) Home Medications: Ambulatory Orders lisinopriL [Zestril TAB] 10 mg PO QDAY 03/30/17 Cymbalta 30 mg PO DAILY 08/29/18 Doxepin 100 mg PO QHS 08/29/18 Simvastatin 20 mg PO DAILY 08/29/18 Control Pills-Low Dose 1 tab PO DAILY 03/27/19 HYDROcodone/APAP 5-325 [[place] 5-325 mg TAB] 1 each PO Q4HR PRN #15 tablet 04/05/19 Ibuprofen [Motrin 600 MG tab] 600 mg PO Q8H PRN #30 tablet 12/22/19 traMADoL [Ultram 50 MG tab] 50 mg PO Q4HR PRN #12 tab 12/22/19 Ketorolac [Toradol] 10 mg PO Q6H PRN #20 tablet 02/23/20 Clindamycin [Clindamycin CAP] 300 mg PO Q8H 10 Days #30 cap 02/27/20 ED Review of Systems ROS: Stated complaint: BLURRY VISION;SEEING SPOTS Other details as noted in HPI ED Past Medical Hx - Past Medical History Previous Medical History?: Yes Hx Hypertension: Yes Hx CVA: (TIA) Hx Heart Attack/AMI: No Hx Liver Disease: No Hx Renal Disease: No Hx HIV: No Additional medical history: Prior T, Slurred Speech. Recent HTN - Surgical History Past Surgical History?: Yes Hx Breast Surgery: Yes (BREAST IMPLANTS) Additional Surgical History: Tubal,RIGHT TORN MENISCUS - Social History Smoking Status: Never Smoker Substance Use Type: None - Medications Home Medications: Home Medications Medication Instructions Recorded Confirmed Last Taken Type lisinopriL [Zestril TAB] 10 mg PO QDAY 03/30/17 03/27/19 04/04/19 18:00 History Cymbalta 30 mg PO DAILY 08/29/18 03/27/19 04/04/19 18:00 History Doxepin 100 mg PO QHS 08/29/18 03/27/19 04/04/19 18:00 History Simvastatin 20 mg PO DAILY 08/29/18 03/27/19 04/04/19 18:00 History Control Pills-Low Dose 1 tab PO DAILY 03/27/19 03/27/19 04/04/19 18:00 History HYDROcodone/APAP 5-325 [[place] 1 each PO Q4HR PRN #15 tablet 04/05/19 Unknown Rx 5-325 mg TAB] Ibuprofen [Motrin 600 MG tab] 600 mg PO Q8H PRN #30 tablet 12/22/19 Unknown Rx traMADoL [Ultram 50 MG tab] 50 mg PO Q4HR PRN #12 tab 12/22/19 Unknown Rx Ketorolac [Toradol] 10 mg PO Q6H PRN #20 tablet 02/23/20 Unknown Rx Clindamycin [Clindamycin CAP] 300 mg PO Q8H 10 Days #30 cap 02/27/20 Unknown Rx ED Physical Exam - General Limitations: No Limitations ED Course Vital Signs 09/13/20 20:53 Temperature 98.3 F Pulse Rate 77 Respiratory 18 Rate Blood Pressure 149/89 O2 Sat by Pulse 94 Oximetry Critical care attestation.: If time is entered above; I have spent that time in minutes in the direct care of this critically ill patient, excluding procedure time. ED Disposition Clinical Impression: Blurry vision, bilateral Acute tension headache Qualifiers: Intractability: not intractable Qualified Code(s): G44.209 - Tension-type headache, unspecified, not intractable Disposition: DC-01 TO HOME OR SELFCARE Is pt being admited?: No Does the pt Need Aspirin: No Condition: Stable Instructions: Visual Disturbances, General Headache Without Cause, Ikih-og-Cgro, Tension Headache, Adult, Cwkw-[id number] Additional Instructions: Take your regular medications, drink plenty of fluids and follow-up with your primary care physician in 3 to 5 days for reevaluation. Return to the ED immediately if symptoms get worse. Referrals: SURESH LUCERO MD [Staff Physician] - 3-5 Days Time of Disposition: 22:16 Print Language: BRAZILIAN
== END 2020-09-13 22:00 | disposition home or self-care (01) ==
LOC: ED 20:46
DX: G44.209 Tension-type headache, unspecified, not intractable (principal); H53.8 Other visual disturbances; I10 Essential (primary) hypertension; Z98.890 Other specified postprocedural states; Z79.1 Long term (current) use of non-steroidal anti-inflammatories (NSAID); Z79.2 Long term (current) use of antibiotics; Z79.899 Other long term (current) drug therapy; Z86.73 Personal history of transient ischemic attack (TIA), and cerebral infarction without residual deficits
CPT/HCPCS: 70450

== ENCOUNTER 2021-01-19 13:37 | Outpatient (CLI) | payer BC ==
[2021-01-19 13:57] LABS: Hematocrit 43.9 % (30.3-42.9); Hemoglobin 15.4 gm/dl (10.1-14.3); Mean Corpuscular HGB Conc 35 % (30-34); Mean Corpuscular Volume 94 fl (79-97); Platelet Count 289 K/mm3 (140-440); Red Blood Count 4.66 M/mm3 (3.65-5.03); Red Cell Distribution Width 13.4 % (13.2-15.2)
[2021-01-19 14:12] LABS: Alanine Aminotransferase 30 units/L (7-56); Albumin 4.6 g/dL (3.9-5); Blood Urea Nitrogen 18 mg/dL (7-17); Calcium 9.6 mg/dL (8.4-10.2); Chol/HDL Ratio 5.54 %; HDL Cholesterol 50 mg/dL (40-59); Hemolysis Index 24; LDL Cholesterol,Direct TNR mg/dL (50-130)
[2021-01-19 14:23] LABS: BUN/Creatinine Ratio 30
== END 2021-01-19 13:38 | disposition home or self-care (01) ==
LOC: LAB 13:37
PROVIDERS: ATTEND Internal Medicine
DX: Z13.29 Encounter for screening for other suspected endocrine disorder (principal); E55.9 Vitamin D deficiency, unspecified; E78.5 Hyperlipidemia, unspecified; E11.65 Type 2 diabetes mellitus with hyperglycemia
CPT/HCPCS: 36415; 80053; 80061; 84443; 85027

== ENCOUNTER 2021-02-14 20:35 | Emergency (ER) | payer BC ==
[2021-02-14 20:49] VITALS: BP 170/76
== END 2021-02-15 01:05 | disposition home or self-care (01) ==
LOC: ED 20:35
DX: I80.02 Phlebitis and thrombophlebitis of superficial vessels of left lower extremity (principal); L03.116 Cellulitis of left lower limb; I10 Essential (primary) hypertension; Z79.899 Other long term (current) drug therapy; Z87.891 Personal history of nicotine dependence; Z98.890 Other specified postprocedural states; Z98.51 Tubal ligation status; Z86.73 Personal history of transient ischemic attack (TIA), and cerebral infarction without residual deficits
CPT/HCPCS: 93970

== ENCOUNTER 2021-10-02 17:45 | Emergency (ER) | payer BC ==
[2021-10-02 18:00] VITALS: BP 165/85
== END 2021-10-02 18:00 | disposition left against medical advice (07) ==
LOC: ED 17:45
DX: M25.552 Pain in left hip (principal); Z53.21 Procedure and treatment not carried out due to patient leaving prior to being seen by health care provider

== ENCOUNTER 2021-10-07 14:14 | Outpatient (CLI) | payer BC ==
--- NOTE | 2021-10-07 15:13 | XRay Report ---
Pelvis and left hip 3 views INDICATION: Left hip pain FINDINGS: Moderate degenerative change in bilateral hips with joint space narrowing. Sacrum and sacro iliac joints appear normal. No acute fracture dislocation. 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
== END 2021-10-07 14:15 | disposition home or self-care (01) ==
LOC: XRAY 14:14
PROVIDERS: ATTEND Orthopaedic Surgery
DX: M16.0 Bilateral primary osteoarthritis of hip (principal)

== ENCOUNTER 2021-10-12 09:09 | Outpatient (CLI) | payer BC ==
[2021-10-12] MEDS ORDERED: LIDOCAINE (1%) 10 MG/1 ML VIAL 20 ML MDV ONE ×2 (09:44→09:48)
--- NOTE | 2021-10-12 11:09 | Fluoroscopy Report ---
ARTHROGRAM OF THE LEFT HIP HISTORY: M25.562 PAIN IN LEFT HIP. COMPARISON: None. CONSENT: The risks,benefits, and alternatives of theprocedure were discussed with the patient who agr eed toproceed. TECHNIQUE: The patient was placed supine on the fluoroscopy table. The left hip joint was identified and overlying skin demarcated under fluoroscopic guidance. Area was prepped and draped in the usual sterile fashion. Time-out was performed. Skin and subcutaneous tissues were anesthetized with lido hina. A 22-gauge spinal needle was placed into the joint space under fluoroscopic guidance. Dilute gadolini um mixture was then injected. The needle was removed and the patient tolerated the procedure well wi thout immediate complication. FLUOROSCOPIC TIME: 2.9 seconds # IMAGES: 8 CONTRAST VOLUME: 12 ml dilute gadolinium mixture. IMPRESSION: Technically successful arthrogram. See post arthrogram Signer Name: Josiah Azar Jr, MD Signed: 10/12/2021 11:04 AM Workstation Name: [id number]
--- NOTE | 2021-10-12 13:37 | Magnetic Resonance Report ---
MRI LEFT HIP WITH INTRA-ARTICULAR CONTRAST INDICATION / CLINICAL INFORMATION: Left hip pain. TECHNIQUE: Multiplanar, multisequence MR images were obtained. Study was performed after intra-articu lar injection of contrast. COMPARISON: Radiographs dated 10/07/2021 FINDINGS: ACETABULAR LABRUM: Superior labral tear best seen on series 7 image 18. ARTICULAR CARTILAGE: [id number] DJD of the left hip joint. LIGAMENTUM TERES: No significant abnormality. JOINT SPACE AND CAPSULE: No significant abnormality. GLUTEAL MUSCLES/TENDONS: No significant abnormality. ILIOPSOAS MUSCLES/TENDON: No significant abnormality. PROXIMAL HAMSTRING TENDONS: No significant abnormality. GROIN MUSCLES/TENDONS: No significant abnormality. SOFT TISSUES: No significant abnormality. BONES: No significant bone marrow edema. No fracture. No osseous lesion. Mild cam-type morphology. SACROILIAC JOINT(S): No significant abnormality. LOWER LUMBAR SPINE: No significant abnormality of visualized lower lumbar spine. SOFT TISSUE WITHIN PELVIS: No acute findings. ADDITIONAL FINDINGS: None. IMPRESSION: 1. 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 2. Superior labral tear with cam-type morphology. Report dictated by: Acosta Inman MD Report dictated on: 10/12/2021 11:59 AM I have reviewed the images, agree with this report, and edited this report as needed. Signer Name: Clovis Ohara MD Signed: 10/12/2021 1:32 PM Workstation Name: [id number]
== END 2021-10-12 09:10 | disposition home or self-care (01) ==
LOC: FLUORO 09:09
PROVIDERS: ATTEND Orthopaedic Surgery
DX: M25.552 Pain in left hip (principal); M16.12 Unilateral primary osteoarthritis, left hip; S73.102A Unspecified sprain of left hip, initial encounter; F17.200 Nicotine dependence, unspecified, uncomplicated; E78.00 Pure hypercholesterolemia, unspecified; I10 Essential (primary) hypertension; E66.9 Obesity, unspecified; Z79.899 Other long term (current) drug therapy; Z98.49 Cataract extraction status, unspecified eye; Z98.51 Tubal ligation status; Z98.891 History of uterine scar from previous surgery; Z98.82 Breast implant status; Z86.73 Personal history of transient ischemic attack (TIA), and cerebral infarction without residual deficits; X58.XXXA Exposure to other specified factors, initial encounter; Y93.89 Activity, other specified; Y92.89 Other specified places as the place of occurrence of the external cause; Y99.8 Other external cause status
CPT/HCPCS: 27093; 73525; 73722; A9575; J3490; Q9967

== ENCOUNTER 2022-03-04 12:24 | Outpatient (CLI) | payer BC | END 2022-03-04 12:25 | disposition home or self-care (01) | LOC: MAMMO 12:24 | PROVIDERS: ATTEND Internal Medicine | DX: Z12.31 Encounter for screening mammogram for malignant neoplasm of breast (principal) | CPT/HCPCS: 77067 ==